=== PATIENT | female | born 1940 | race Caucasian/White ===

== ENCOUNTER → 2016-11-02 | Outpatient (CLI) | payer OTHER ==
[~2016-11-02] MED LIST: ALLDSR60 PO; B-COTAB18 PO; CARB25TA12 PO; CARB50TA3 PO; CHOL100010 PO; CLON0.5T3 PO; CRS10 PO; FSM70 PO; KRIL1CAP7 PO; META1TAB22 PO; OMEP40CA PO; PROBCAP PO; ROPI0.25 PO; TYL325X PO
--- NOTE | 2016-11-02 09:20 | DIAGNOSTIC IMAGING REPORT ---
GI SERIES W/AIR ROUTINE CLINICAL HISTORY: R68.81 Early [id number] [id number] COMPARISON STUDY: 09/13/2014 FLUOROSCOPY TIME: 2.5 minutes. FINDINGS: Patient initiates swallowing function well. Mild esophageal irritability. Fixed lateral hernia. Mild gastroesophageal reflux. Size configuration stomach are normal. Duodenal bulb fills well and is negative for ulceration. Duodenal sweep is unremarkable IMPRESSION: Hiatal hernia. Gastroesophageal reflux. Otherwise negative study. Electronically signed by: Gurpreet Peoples M.D. 11/02/2016 9:18 AM Dictated Date/Time: 11/02/2016 9:15 AM
== END | disposition home or self-care (01) ==
LOC: C.RAD 08:41
PROVIDERS: ATTEND Internal Medicine
DX: R68.81 Early satiety (principal); R13.10 Dysphagia, unspecified; K21.9 Gastro-esophageal reflux disease without esophagitis; K44.9 Diaphragmatic hernia without obstruction or gangrene

== ENCOUNTER → 2016-11-13 | Outpatient (CLI) | payer OTHER ==
--- NOTE | 2016-11-13 15:58 | MAMMOGRAPHY REPORT ---
BILATERAL DIGITAL SCREENING MAMMOGRAM WITH CAD: 11/13/2016 CLINICAL HISTORY: Routine screening. Patient has no complaints. TECHNIQUE: Bilateral CC and MLO views were obtained. Current study was also evaluated with a Compu ter Aided Detection (CAD) system. COMPARISON: Comparison is made to exams dated: 11/10/2015 mammogram, 11/09/2014 mammogram, 09/30/2013 m ammogram, 09/29/2012 mammogram, 09/26/2011 mammogram, and 08/21/2010 mammogram - [facility] enter. BREAST COMPOSITION: There are scattered areas of fibroglandular density in both breasts. There is dense glandular tissue concentrated in the anterior subareolar aspect of each breast. FINDINGS: There are stable benign rim calcifications bilaterally. No suspicious mass, architectural distortion or cluster of microcalcifications is seen. IMPRESSION: ACR BI-RADS CATEGORY 1: NEGATIVE There is no mammographic evidence of malignancy. A 1 year screening mammogram is recommended. The p atient will receive written notification of the results. Approximately 10% of breast cancers are not detected with mammography. A negative mammographic repor t should not delay biopsy if a clinically suggestive mass is present. Elizabeth Lewis M.D. ay/:11/13/2016 13:43:50 Straight Line Edger: Zamzam Yanez, M, [facility] letter sent: Normal 1/2 BI-RADS Code: ACR BI-RADS Category 1: Negative
== END | disposition home or self-care (01) ==
LOC: C.MAMM 10:47
PROVIDERS: ATTEND Internal Medicine
DX: Z12.31 Encounter for screening mammogram for malignant neoplasm of breast (principal)

== ENCOUNTER → 2016-11-14 | Outpatient (CLI) | payer OTHER ==
--- NOTE | 2016-11-14 12:26 | DIAGNOSTIC IMAGING REPORT ---
NUCLEAR GASTRIC EMPTYING STUDY: CLINICAL HISTORY: R68.81 Early [id number] [id number] COMPARISON STUDY: None TECHNIQUE: Following the oral administration of 1.1 mCi of technetium 99m sulfur colloid in egg sandwich and 8 ounces of water, static abdominal images are performed anteriorly and posteriorly at 0 minutes, 1 hour, 2 hours, and 4 hour time intervals. Gastric emptying was calculated utilizing the geometric mean method. FINDINGS: There is approximately 61 % gastric activity remaining at the 1 hour time interval, 44 % at the 2 hour time interval (normal is less than 60%), and 2 % remaining at the 4 hour time interval (normal is less than 10%). These findings are consistent with a normal study IMPRESSION: Findings are consistent with a normal study. Electronically signed by: Josef Guzman M.D. 11/14/2016 12:25 PM Dictated Date/Time: 11/14/2016 12:24 PM
== END | disposition home or self-care (01) ==
LOC: C.NUCL 07:30
PROVIDERS: ATTEND Internal Medicine
DX: R68.81 Early satiety (principal); R13.10 Dysphagia, unspecified

== ENCOUNTER → 2016-11-27 | Outpatient (CLI) | payer OTHER ==
[2016-11-27 13:35] LABS: ALT/SGPT 13 U/L (12-78); BLOOD UREA NITROGEN 14 mg/dl (7-18); BUN/CREATININE RATIO 15.3 (10-20); CALCIUM 9.6 mg/dl (8.5-10.1); CARBON DIOXIDE 22 mmol/L (21-32); CHLORIDE 111 mmol/L (98-107); CHOLESTEROL 157 mg/dl (0-200); CREATININE 0.89 mg/dl (0.60-1.20); GLUCOSE 79 mg/dl (70-99); POTASSIUM 3.7 mmol/L (3.5-5.1); SODIUM 143 mmol/L (136-145); TRIGLYCERIDES 187 mg/dl (0-150); VERY LOW DENSITY LIPOPROT CALC 37 mg/dl
[2016-11-27 13:46] LABS: ALKALINE PHOSPHATASE 80 U/L (45-117); AST/SGOT 21 U/L (15-37); CHOLESTEROL/HDL RATIO 2.7; ESTIMATED AVERAGE GLUCOSE 128 mg/dl; HA1C FLAG Normal (Normal); HDL CHOLESTEROL 58 mg/dl; LDL CHOLESTEROL CALCULATED 62 mg/dl
--- NOTE | 2016-12-06 10:32 | CODING QUERY MEDICAL NECESSITY ---
CQSUPPORTING DIAGNOSIS NEEDED A supporting diagnosis is required for the test/procedure performed on this patient in order for us to be reimbursed by the patient's insurance. Please provide a supporting diagnosis for the following test/procedure listed below next to the test name along with your signature. *If there is no additional diagnosis for this patient that would support the following test/procedure please document that below next to the test/procedure. Test(s)/Procedure(s) that require a supporting diagnosis: DOS 11/27/16 GLYCATED HEMOGLOBIN TEST Provider Signature: Date: Thank you Quiana Duncan Health Information Management Once completed, please kindly fax back to [phone] For questions please call [phone]
--- NOTE | 2016-12-07 06:02 | CODING QUERY MEDICAL NECESSITY ---
CQSUPPORTING DIAGNOSIS NEEDED A supporting diagnosis is required for the test/procedure performed on this patient in order for us to be reimbursed by the patient's insurance. Please provide a supporting diagnosis for the following test/procedure listed below next to the test name along with your signature. *If there is no additional diagnosis for this patient that would support the following test/procedure please document that below next to the test/procedure. Test(s)/Procedure(s) that require a supporting diagnosis: DOS 11/27/16 GLYCATED HEMOGLOBIN TEST Provider Signature: Date: Thank you Quiana Duncan Health Information Management Once completed, please kindly fax back to [phone] For questions please call [phone]
== END | disposition home or self-care (01) ==
LOC: C.LAB 12:01
PROVIDERS: ATTEND Internal Medicine
DX: G25.81 Restless legs syndrome (principal); M81.0 Age-related osteoporosis without current pathological fracture; R73.09 Other abnormal glucose

== ENCOUNTER → 2017-01-09 | Outpatient (CLI) | payer OTHER ==
[~2017-01-09] MED LIST changes: +ALEN70TA2 PO; +ASCO250T4 PO; +CALC-51 PO; +CALC1CHW43 PO; +CHOL20007 PO; +CRS/10 PO; +CYAN100020 PO; +DICL1GEL12 TOP; +FEXO1TAB49 PO; +GLUC1CAP28 PO; +HYOS0.1271 PO; +MECL1TAB42 PO; +MOME6000 NAE; +OMEP40CA41 PO
== END | disposition home or self-care (01) ==
LOC: C.MAMM 13:16
PROVIDERS: ATTEND Internal Medicine
DX: M81.0 Age-related osteoporosis without current pathological fracture (principal)

== ENCOUNTER 2017-07-03 18:54 | Emergency (ER) | payer OTHER ==
[~2017-07-03] VITALS: Ht 165.1 cm; Wt 81.1 kg
[~2017-07-03 18:54] MED LIST changes: -ALEN70TA2 PO; -ASCO250T4 PO; -CALC-51 PO; -CALC1CHW43 PO; -CHOL20007 PO; -CRS/10 PO; -CYAN100020 PO; -DICL1GEL12 TOP; -FEXO1TAB49 PO; -GLUC1CAP28 PO; -HYOS0.1271 PO; -MECL1TAB42 PO; -MOME6000 NAE; -OMEP40CA41 PO
[2017-07-03 19:01] VITALS: TEMP 36.7; Ht 165.1 cm; Wt 81.1 kg
[2017-07-03] MEDS ORDERED: SODIUM CHLORIDE 0.9% 1000ML 1,000 ML IV STA (19:15)
[2017-07-03 19:28] VITALS: O2SAT 94
[2017-07-03 19:29] LABS: BASO % 0.6 %; BASO ABS # 0.03 K/uL (0-0.2); COMPLETE YES; EOS % 3.4 %; HEMATOCRIT 41.4 % (37-47); IG% 0.2 %; LYMPH % 39.2 %; LYMPH ABS # 1.86 K/uL (1.2-3.4); MEAN CELL VOLUME 92.8 fL (80-100); MEAN CORPUSCULAR HEMOGLOBIN 32.7 pg (25-34); MEAN CORPUSCULAR HGB CONC 35.3 g/dl (32-36); MEAN PLATELET VOLUME 9.7 fL (7.4-10.4); MONO % 13.5 %; NEUT % 43.1 %; PLATELET COUNT 198 K/uL (130-400); RED BLOOD COUNT 4.46 M/uL (4.2-5.4); WHITE BLOOD COUNT 4.74 K/uL (4.8-10.8)
[2017-07-03 19:39] LABS: ALT/SGPT 10 U/L (12-78); AST/SGOT 20 U/L (15-37); BLOOD UREA NITROGEN 15 mg/dl (7-18); BUN/CREATININE RATIO 16.7 (10-20); CALCIUM 9.1 mg/dl (8.5-10.1); CARBON DIOXIDE 23 mmol/L (21-32); CHLORIDE 111 mmol/L (98-107); GLUCOSE 170 mg/dl (70-99); POTASSIUM 3.6 mmol/L (3.5-5.1); SODIUM 142 mmol/L (136-145)
--- NOTE | 2017-07-03 19:46 | DIAGNOSTIC IMAGING REPORT ---
CHEST ONE VIEW PORTABLE CLINICAL HISTORY: Altered mental status. Weakness. COMPARISON STUDY: Chest radiograph October 06, 2014. FINDINGS: Surgical anchors within the right humeral head are noted. 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 No pneumothorax or pleural effusion is present. Minimal left basilar opacity is suggestive of atelectasis. Cardiomediastinal silhouette is stable. There is no evidence of pulmonary edema. IMPRESSION: No acute cardiopulmonary findings. Electronically signed by: Antonino Blackburn M.D. 07/03/2017 7:44 PM Dictated Date/Time: 07/03/2017 7:43 PM
[2017-07-03 19:47] LABS: PARTIAL THROMBOPLASTIN RATIO 0.9; PROTHROMBIN TIME (PATIENT) 10.2 SECONDS (9.0-12.0)
[2017-07-03 19:50] LABS: ALKALINE PHOSPHATASE 68 U/L (45-117)
--- NOTE | 2017-07-03 20:07 | EMERGENCY ROOM VISIT NOTE ---
History Report prepared by Jean Carlos: Ced Hernandez Under the Supervision of: Dr. Benson Retana D.O. First contact with patient: 19:09 Chief Complaint: SYNCOPE Stated Complaint: SYNCOPE History of Present Illness The patient is a 76 year old female who presents to the Emergency Room with complaints of a sudden syncopal episode occurring prior to arrival. The patient states that she was eating dinner, and she started to get a faint feeling and she felt hot. The patient states that she then sat down and passed out, and she states that she vomited afterwards as well. The patient denies any leg swelling or pain, nausea, chest pain, shortness of breath, and headache. She states that she has a history of fainting spells and vertigo. The patient states that she was not drinking any alcohol, and she took a pain pill around 1700 which is normal for her. She states that she has been drinking and eating well, and she has not been urinating more than usual recently. The patient has a history of a fused spine and fibromyalgia. Source of History: patient Onset: prior to arrival Position: other (global) Quality: other (syncope) Timing: other (sudden) Associated Symptoms: + vomiting, No headache, No chest pain, No SOB, No nausea Review of Systems See HPI for pertinent positives & negatives. A total of 10 systems reviewed and were otherwise negative. Past Medical & Surgical Medical Problems: (1) Diverticulitis (2) Lumbar radiculopathy (3) Pancreas cyst (4) Restless leg syndrome Surgical Problems: (1) History of back surgery Family History No pertinent family history Social History Smoking Status: Never Smoker Drug Use: none Marital Status: Housing Status: lives alone Occupation Status: retired Current/Historical Medications Scheduled Alendronate Sodium (Fosamax), 70 MG PO WK Ascorbic Acid (Vitamin C), 250 MG PO DAILY B-Complex Vitamins (Vitamin B Complex), 1 TAB PO DAILY Calcium Carbonate-Vitamin D (Calcium), 1 TAB PO BID Carbidopa/Levodopa (Sinemet Cr 50MG/200MG), 2 TAB PO HS Carbidopa/Levodopa (Sinemet 25MG/100MG), 1 TAB PO BID Cholecalciferol (Vitamin D3), 1 TAB PO DAILY Clonazepam (Klonopin), 1 MG PO HS Cyanocobalamin (Vitamin B12), 1,000 MCG PO DAILY Fexofenadine Hcl (Lita Allergy), 1 TAB PO DAILY Uqsbcmsvfzv-Ulsvobxhvzd-Oxk C- (Glucosamine Chondroitin M), 2 CAP PO DAILY Hyoscyamine Sulfate (Hyoscyamine Sulfate), 1 TAB PO AC Krill Oil (Krill Oil [place]-3), 1 CAP PO DAILY Mometasone Furoate (Nasal) (Mometasone Furoate), 2 SPRAYS RUPA DAILY Omeprazole (Prilosec), 40 MG PO DAILY Ropinirole (Requip), 3 TABS PO BID Rosuvastatin Calcium (Crestor), 10 MG PO HS Scheduled PRN Calcium Carbonate (Antacid) (Tums E-X 750), 1 TAB PO QPM PRN for HEART BURN Diclofenac Sodium (Topical) (Voltaren 1% Top Gel), 1 APPLN TOP for Pain Meclizine Hcl (Meclizine Hcl), 1 TAB PO TID PRN for Dizziness or Vertigo Metaxalone (Skelaxin), 800 MG PO HS PRN for Mild Pain Allergies Coded Allergies: Alcohol (Verified Allergy, Unknown, MIGRAINES, 09/20/15) Eucalyptus Tree (Verified Allergy, Unknown, CONGESTION, 09/20/15) Metoclopramide (Verified Allergy, Unknown, 09/20/15) Quinine (Verified Allergy, Unknown, BLOOD COUNT GOES DOWN, 09/20/15) Morphine (Verified Adverse Reaction, Mild, "SICK", 09/20/15) Physical Exam Vital Signs Date Time Temp Pulse Resp B/P (MAP) Pulse Ox O2 Delivery O2 Flow Rate FiO2 07/03/17 22:58 77 18 137/69 99 07/03/17 21:05 75 18 130/70 98 Room Air 07/03/17 20:04 133/74 135/76 137/86 07/03/17 19:28 94 Room Air 07/03/17 19:12 79 07/03/17 19:01 36.7 76 18 125/79 94 Room Air Physical Exam GENERAL: Patient is awake, alert, and in no acute distress. Patient is resting comfortably and showing no signs of anxiety EYES: The conjunctivae are clear. The pupils are round and reactive. EARS, NOSE, MOUTH AND THROAT: The nose is without any evidence of any deformity. Mucous membranes are moist tongue is midline NECK: The neck is nontender and supple. RESPIRATORY: Normal respiratory effort is noted there is no evidence of wheezing rhonchi or rales CARDIOVASCULAR: Regular rate and rhythm noted there no murmurs rubs or gallops normal S1 normal S2 GASTROINTESTINAL: The abdomen is soft. Bowel sounds are present in all quadrants. Abdomen is nontender MUSCULOSKELETAL/EXTREMITIES: There is no evidence of gross deformity full range of motion is noted in the hips and shoulders SKIN: Trace pedal edema bilaterally. There is no obvious evidence of any rash. There are no petechiae, pallor or cyanosis noted. NEUROLOGIC: Patient is awake alert and oriented x3 strength is symmetric patellar reflexes are 2+ bilaterally Medical Decision & Procedures ER Provider Diagnostic Interpretation: Radiology results as stated below per my review and radiologist interpretation: CHEST ONE VIEW PORTABLE CLINICAL HISTORY: Altered mental status. Weakness. COMPARISON STUDY: Chest radiograph October 06, 2014. FINDINGS: Surgical anchors within the right humeral head are noted. 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 No pneumothorax or pleural effusion is present. Minimal left basilar opacity is suggestive of atelectasis. Cardiomediastinal silhouette is stable. There is no evidence of pulmonary edema. IMPRESSION: No acute cardiopulmonary findings. Electronically signed by: Antonino Blackburn M.D. 07/03/2017 7:44 PM Dictated Date/Time: 07/03/2017 7:43 PM Laboratory Results 07/03/17 18:48 Red Blood Count 4.46, Mean Corpuscular Volume 92.8, Mean Corpuscular Hemoglobin 32.7, Mean Corpuscular Hemoglobin Concent 35.3, Mean Platelet Volume 9.7, Neutrophils (%) (Auto) 43.1, Lymphocytes (%) (Auto) 39.2, Monocytes (%) (Auto) 13.5, Eosinophils (%) (Auto) 3.4, Basophils (%) (Auto) 0.6, Neutrophils # (Auto ) 2.04, Lymphocytes # (Auto) 1.86, Monocytes # (Auto) 0.64, Eosinophils # (Auto ) 0.16, Basophils # (Auto) 0.03 07/03/17 18:48 Test 07/03/17 18:48 07/03/17 21:25 White Blood Count 4.74 K/uL (4.8-10.8) Red Blood Count 4.46 M/uL (4.2-5.4) Hemoglobin 14.6 g/dL (12.0-16.0) Hematocrit 41.4 % (37-47) Mean Corpuscular Volume 92.8 fL (80-100) Mean Corpuscular Hemoglobin 32.7 pg (25-34) Mean Corpuscular Hemoglobin Concent 35.3 g/dl (32-36) Platelet Count 198 K/uL (130-400) Mean Platelet Volume 9.7 fL (7.4-10.4) Neutrophils (%) (Auto) 43.1 % Lymphocytes (%) (Auto) 39.2 % Monocytes (%) (Auto) 13.5 % Eosinophils (%) (Auto) 3.4 % Basophils (%) (Auto) 0.6 % Neutrophils # (Auto) 2.04 K/uL (1.4-6.5) Lymphocytes # (Auto) 1.86 K/uL (1.2-3.4) Monocytes # (Auto) 0.64 K/uL (0.11-0.59) Eosinophils # (Auto) 0.16 K/uL (0-0.5) Basophils # (Auto) 0.03 K/uL (0-0.2) RDW Standard Deviation 45.8 fL (36.4-46.3) RDW Coefficient of Variation 13.5 % (11.5-14.5) Immature Granulocyte % (Auto) 0.2 % Immature Granulocyte # (Auto) 0.01 K/uL (0.00-0.02) Prothrombin Time 10.2 SECONDS (9.0-12.0) Prothromb Time International Ratio 1.0 (0.9-1.1) Activated Partial Thromboplast Time 23.1 SECONDS (21.0-31.0) Partial Thromboplastin Ratio 0.9 Anion Gap 8.0 mmol/L (3-11) Est Creatinine Clear Calc Drug Dose 55.9 ml/min Estimated GFR () 72.0 Estimated GFR (Non- 62.1 BUN/Creatinine Ratio 16.7 (10-20) Calcium Level 9.1 mg/dl (8.5-10.1) Magnesium Level 2.0 mg/dl (1.8-2.4) Total Bilirubin 0.5 mg/dl (0.2-1) Direct Bilirubin 0.1 mg/dl (0-0.2) Aspartate Amino Transf (AST/SGOT) 20 U/L (15-37) Alanine Aminotransferase (ALT/SGPT) 10 U/L (12-78) Alkaline Phosphatase 68 U/L (45-117) Troponin I < 0.015 ng/ml (0-0.045) Total Protein 7.3 gm/dl (6.4-8.2) Albumin 3.6 gm/dl (3.4-5.0) Thyroid Stimulating Hormone (TSH) 2.960 uIu/ml (0.300-4.500) Urine Color DK YELLOW Urine Appearance CLEAR (CLEAR) Urine pH 5.5 (4.5-7.5) Urine Specific Drake 1.020 (1.000-1.030) Urine Protein NEG (NEG) Urine Glucose (UA) NEG (NEG) Urine Ketones NEG (NEG) Urine Occult Blood NEG (NEG) Urine Nitrite NEG (NEG) Urine Bilirubin NEG (NEG) Urine Urobilinogen NEG (NEG) Urine Leukocyte Esterase TRACE (NEG) Urine WBC (Auto) 1-5 /hpf (0-5) Urine RBC (Auto) 0-4 /hpf (0-4) Urine Hyaline Casts (Auto) 1-5 /lpf (0-5) Urine Epithelial Cells (Auto) 20-30 /lpf (0-5) Urine Bacteria (Auto) NEG (NEG) Laboratory results per my review. Medications Administered Medications (Trade) Dose Ordered Sig/Christel Route Start Time Stop Time Status Last Admin Dose Admin Sodium Chloride 1,000 ml @ 999 mls/hr Q1H1M STAT IV 07/03/17 19:15 07/03/17 20:15 DC 07/03/17 19:53 999 MLS/HR ECG Indication: syncope Rate (beats per minute): 76 Rhythm: normal sinus Findings: no ectopy, other (No acute ST segment abnormality. LVH by voltage criteria.) Comparison ECG Date: no prior available ED Course 1908: The patient was evaluated in room B11. A complete history and physical examination were performed. 1914: NSS 1,000 ml @ 999 mls/hr IV 2223: Upon reevaluation, the patient is doing well. I discussed the results and treatment plan with her. She verbalized agreement of the treatment plan. She was discharged home. Medical Decision Differential diagnosis: Etiologies such as vasovagal event, infection, hypoglycemia, electrolyte abnormalities, cardiac sources, intracerebral event, toxicologic, neurologic, as well as others were entertained. Nursing notes reviewed. The patient is a 76-year-old female who presented to the emergency department after having a syncopal episode. The patient had no complaints upon arrival to the emergency Department although she did get Zofran for an episode of nausea vomiting that occurred prior to arrival. The patient had no chest pain or shortness of breath. She was treated with IV fluids in the emergency department. I discussed the patient's laboratory and radiographic studies with her. She was encouraged to rest and avoid any strenuous activity. She already has an appointment scheduled with her primary care physician in the morning. She was encouraged to keep this appointment. She was also encouraged to rest and avoid any strenuous activity. She was also encouraged return to emergency department immediately if symptoms change worsen or the need arises. Head Trauma GCS Score: 15 Medication Reconcilliation Current Medication List: was personally reviewed by me Blood Pressure Screening Patient's blood pressure: Normal blood pressure Impression Primary Impression: Syncope Scribe Attestation The scribe's documentation has been prepared under my direction and personally reviewed by me in its entirety. I confirm that the note above accurately reflects all work, treatment, procedures, and medical decision making performed by me. Departure Information Dispostion Home / Self-Care Referrals Tu Cannon M.D. (PCP) Forms HOME CARE DOCUMENTATION FORM, IMPORTANT VISIT INFORMATION Patient Instructions My [facility], Syncope Additional Instructions Follow-up with your family tomorrow as scheduled. Drink plenty clear liquids. Rest and avoid any strenuous activity. Discussed the possibility with your family doctor that you may require further studies such as an echocardiogram or a Holter monitor to further evaluate the cause of your passing out episode. Problem Qualifiers Primary Impression: Syncope Syncope type: unspecified Qualified Codes: R55 - Syncope and collapse
[2017-07-03] MEDS ORDERED: ALEN70TA2 PO (20:48)
[2017-07-03] MEDS ORDERED: GLUC1CAP28 PO (20:48)
[2017-07-03] MEDS ORDERED: ASCO250T4 PO (20:48)
[2017-07-03] MEDS ORDERED: CALC1CHW43 PO (20:48)
[2017-07-03] MEDS ORDERED: CYAN100020 PO (20:48)
[2017-07-03] MEDS ORDERED: HYOS0.1271 PO (20:48)
[2017-07-03] MEDS ORDERED: MECL1TAB42 PO (20:48)
[2017-07-03] MEDS ORDERED: CALC-51 PO (20:48)
[2017-07-03] MEDS ORDERED: OMEP40CA41 PO (20:48)
[2017-07-03] MEDS ORDERED: DICL1GEL12 TOP (20:48)
[2017-07-03] MEDS ORDERED: CRS/10 PO (20:48)
[2017-07-03] MEDS ORDERED: MOME6000 NAE (20:48)
[2017-07-03] MEDS ORDERED: FEXO1TAB49 PO (20:48)
[2017-07-03] MEDS ORDERED: CHOL20007 PO (20:48)
[2017-07-03 21:49] LABS: MANUAL MICROSCOPIC REQUIRED? NO; REVIEW REQ? NO; URINE APPEARANCE CLEAR (CLEAR); URINE BILIRUBIN NEG (NEG); URINE COLOR DK YELLOW; URINE EPITHELIAL CELL AUTO 20-30 /lpf (0-5); URINE NITRITE NEG (NEG); URINE PH 5.5 (4.5-7.5); UROBILINOGEN NEG (NEG)
[2017-07-03 22:58] VITALS: BP 137/69; PULSE 77; O2SAT 99
== END 2017-07-03 22:59 | disposition home or self-care (01) ==
LOC: EDBD 18:54 → C.EDB 18:55
DX: R55 Syncope and collapse (principal); R11.2 Nausea with vomiting, unspecified; M79.7 Fibromyalgia; G25.81 Restless legs syndrome; Z98.1 Arthrodesis status

== ENCOUNTER 2017-09-14 17:06 | Inpatient (IN) | payer OTHER ==
[~2017-09-14] VITALS: Ht 165.1 cm; Wt 67.3 kg
[~2017-09-14 17:06] MED LIST changes: +ALEN70TA2 PO; -ALLDSR60 PO; +ASCO250T4 PO; +CALC-51 PO; +CALC1CHW43 PO; -CHOL100010 PO; +CHOL20007 PO; +CRS/10 PO; -CRS10 PO; +CYAN100020 PO; +DICL1GEL12 TOP; +FEXO1TAB49 PO; -FSM70 PO; +GLUC1CAP28 PO; +HYOS0.1271 PO; +MECL1TAB42 PO; +MOME6000 NAE; -OMEP40CA PO; +OMEP40CA41 PO; -PROBCAP PO; -TYL325X PO
[2017-09-14] MEDS ORDERED: KETOROLAC TROMETHAMINE 30 MG/ML VIAL IV STA (17:15)
[2017-09-14] MEDS ORDERED: MoRPHine SULFATE 2 MG/ML CARP IV STA ×2 (17:15→17:50)
[2017-09-14] MEDS ORDERED: ONDANSETRON INJ 2 MG/ML 2 ML VIAL IV STA (17:15)
--- NOTE | 2017-09-14 17:18 | EMERGENCY ROOM VISIT NOTE ---
History Report prepared by Jean Carlos: Ced Hernandez Under the Supervision of: Dr. Ritchie Hooper M.D. First contact with patient: 17:07 Stated Complaint: FALL/ SHOULDER PAIN History of Present Illness The patient is a 77 year old female who presents to the Emergency Room with complaints of a sudden fall occurring 10 minutes prior to arrival. The patient states that she was walking her dog when it ran and pulled her, and she fell on her left shoulder. She states that she is having left shoulder pain and some neck pain. She denies any loss of consciousness, chest pain, shortness of breath , rib pain, abdominal pain, and any head injury. The patient additionally states that she has had multiple surgeries on that shoulder including a rotator cuff repair. Source of History: patient Onset: 10 minutes prior to arrival Position: other (global) Quality: other Timing: other (sudden) Associated Symptoms: + neck pain, No chest pain, No SOB Note: Associated symptoms: Left shoulder pain Review of Systems See HPI for pertinent positives & negatives. A total of 10 systems reviewed and were otherwise negative. Past Medical & Surgical Medical Problems: (1) Clavicular fracture (2) Diverticulitis (3) Lumbar radiculopathy (4) Pancreas cyst (5) Restless leg syndrome Surgical Problems: (1) History of back surgery Old medical records were reviewed. Nurse's notes were reviewed and I agree with. Family History No pertinent family history Social History Smoking Status: Never Smoker Drug Use: none Marital Status: Housing Status: lives alone Occupation Status: retired Current/Historical Medications Scheduled Alendronate Sodium (Fosamax), 70 MG PO WK Carbidopa/Levodopa (Sinemet Cr 50MG/200MG), 2 TAB PO HS Carbidopa/Levodopa (Sinemet 25MG/100MG), 1 TAB PO QID Gabapentin (Neurontin), 200 MG PO HS Krill Oil (Krill Oil [place]-3), 1 CAP PO DAILY Nutritional Supplements (Colon Formula), 1 CAP PO DAILY Omeprazole (Prilosec), 40 MG PO DAILY Ropinirole (Requip), 0.5 MG PO TID Rosuvastatin Calcium (Crestor), 10 MG PO HS Thiamine Hcl (Vitamin B-1), 1 TAB PO DAILY Scheduled PRN Fexofenadine Hcl (Lita), 60-120 MG PO BID PRN for ALLERGIES Metaxalone (Skelaxin), 800 MG PO DAILY PRN for Pain Allergies Coded Allergies: Alcohol (Verified Allergy, Unknown, MIGRAINES, 09/14/17) Eucalyptus Tree (Verified Allergy, Unknown, CONGESTION, 09/14/17) Metoclopramide (Verified Allergy, Unknown, 09/14/17) Quinine (Verified Allergy, Unknown, BLOOD COUNT GOES DOWN, 09/14/17) Morphine (Verified Adverse Reaction, Mild, "SICK", 09/14/17) Physical Exam Vital Signs Date Time Temp Pulse Resp B/P (MAP) Pulse Ox O2 Delivery O2 Flow Rate FiO2 09/14/17 19:18 93 Nasal Cannula 2.0 09/14/17 19:17 87 Room Air 09/14/17 19:06 91 11 94 09/14/17 19:04 163/92 09/14/17 18:36 87 16 09/14/17 18:21 70 16 09/14/17 18:06 80 22 09/14/17 17:51 82 31 09/14/17 17:43 70 09/14/17 17:36 72 15 97 09/14/17 17:16 36.6 76 20 169/91 95 Room Air 09/14/17 17:12 169/91 Physical Exam General: Uncomfortable appearing older female complaining of left shoulder pain towards her scapula. HEENT: Normal cephalic atraumatic. Pupils are equal round and reactive to light. Extraocular movements are intact. Oropharynx is pink with moist mucous membranes. No swelling of the mouth lips or tongue. Neck: Supple with a midline trachea. No meningeal signs or stiffness, no JVD or bruits. No Stridor. Chest: Clear to auscultation bilaterally. No wheezes or rhonchi. No increased work of breathing. Heart: regular rate and rhythm. Abdomen: Soft nontender, nondistended without rebound guarding or rigidity. Extremities: There is significant pain with any movement of the left shoulder. Scar from previous surgeries. No cyanosis clubbing or edema. No calf tenderness or assymetry Spine/Back. Non tender to palpation. No CVA tenderness Skin: Good turgor without rashes. Neurologic exam: Cranial nerves two through 12 are intact. Motor and sensation are intact and symmetrical throughout. Medical Decision & Procedures ER Provider Diagnostic Interpretation: Radiology results as stated below per my review and radiologist interpretation: LEFT SHOULDER 3 VIEWS HISTORY: Fall. Left shoulder pain. eval for fx COMPARISON: Chest 07/03/2017. FINDINGS: The left clavicle is intact. Displaced fracture at the body of the scapula which demonstrates up to 1.7 cm of posterior displacement. No dislocation within the left shoulder. The fracture extends through the glenoid. The humeral head appears intact. Moderate osteoarthritis within the glenohumeral joint. No radiopaque foreign bodies. IMPRESSION: Displaced scapular fracture which involves the glenoid. No dislocation. Electronically signed by: Suleman Gonzalez M.D. 09/14/2017 6:10 PM Dictated Date/Time: 09/14/2017 6:07 PM CHEST ONE VIEW PORTABLE HISTORY: Left-sided CHEST PAIN COMPARISON: Chest 07/03/2017. FINDINGS: No pneumothorax. No pleural effusions. The heart remains mildly enlarged. Posterior fusion hardware within the lumbar spine. Metallic anchors within the right humeral head. Left scapular fracture is better appreciated on the same day left shoulder series. IMPRESSION: 1. Mild cardiomegaly. 2. Left scapular fracture is again noted. Electronically signed by: Suleman Gonzalez M.D. 09/14/2017 6:11 PM Dictated Date/Time: 09/14/2017 6:[address] WITH CONTRAST CT DOSE: HISTORY: Fall. Left shoulder fracture. eval for trauma TECHNIQUE: Multiaxial CT images of the chest were performed following the intravenous administration of contrast. A dose lowering technique was utilized adhering to the principles of ALARA. COMPARISON: Chest CT 12/27/2009. FINDINGS: There is oblique fracture within the medial left clavicle which demonstrates mild anterior displacement. Redemonstration of the comminuted fracture through the body of the scapula which extends into the glenoid. This demonstrates up to 2 cm of posterior displacement at the glenoid. There is a left shoulder effusion. Mild anterior subluxation of the left humeral head. No pneumothorax. Groundglass densities within the base of the left lower lobe. The right lung is essentially clear. The central airways are patent. Moderate hiatus hernia. No mediastinal or hilar lymphadenopathy. Normal caliber thoracic aorta with no evidence for dissection. The central pulmonary arteries are patent. No mediastinal hematoma. No pneumothorax. No pleural effusions. IMPRESSION: 1. Comminuted fracture within the left scapula as described above. This extends into the glenoid which demonstrates up to 2 cm of posterior displacement of the glenoid fragment. There is mild anterior subluxation of the left humeral head in relation to the glenoid. 2. Mildly displaced left medial clavicle fracture. 3. Groundglass densities within the left lower lobe which favor mild dependent change. Electronically signed by: Suleman Gonzalez M.D. 09/14/2017 7:32 PM Dictated Date/Time: 09/14/2017 7:[address] DOSE: HISTORY: Fall. Neck pain. eval for trauma TECHNIQUE: Multiaxial CT images of the cervical spine were performed and reformatted in the sagittal and coronal plane without the use of contrast. A dose lowering technique was utilized adhering to the principles of ALARA. COMPARISON: None. FINDINGS: No fractures within the cervical spine. 2 mm of anterolisthesis of C4 and C5 and C5 on C6. This is likely due to long-standing degenerative change. Mild disc space narrowing at C5-C6 and severe disc space narrowing at C6-C7. The prevertebral soft tissues and the C1-C2 interval are intact. No pneumothorax. IMPRESSION: No fractures within the cervical spine. Electronically signed by: Suleman Gonzalez M.D. 09/14/2017 7:18 PM Dictated Date/Time: 09/14/2017 7:12 PM A[address]OMEN AND PELVIS CT WITH IV CONTRAST CT DOSE: 1839.16 mGy.cm HISTORY: Fall. Left-sided abdominal pain. eval for trAUMA TECHNIQUE: Multiaxial CT images of the abdomen and pelvis were performed following the use of intravenous contrast. A dose lowering technique was utilized adhering to the principles of ALARA. COMPARISON STUDY: Abdomen and pelvis CT 06/20/2014. FINDINGS: No pneumoperitoneum. No pneumatosis. No acute fractures within the visualized osseous structures of the abdomen and pelvis. Posterior decompression fusion seen within the lower thoracic and lumbar spine. Small fat-containing midline ventral hernia and a small fat-containing umbilical hernia. Mild elevation of the left hemidiaphragm, unchanged. Moderate hiatus hernia. The bladder, uterus, bilateral adnexa are unremarkable. Colonic diverticulosis. Question wall thickening of the sigmoid colon is likely due to muscular hypertrophy. No bowel wall thickening or obstruction. Postoperative changes consistent with prior right hemicolectomy. No retroperitoneal hematoma. No retroperitoneal lymphadenopathy. A left circumaortic renal vein. The liver, spleen, and adrenal glands are unremarkable. No hydronephrosis. Stable common hepatic bile duct dilatation. This is likely due to the patient's postcholecystectomy state. Stable 9 mm cystic lesion at the pancreatic tail. A few subcentimeter hypodense renal lesions are too small to characterize. No hydronephrosis. IMPRESSION: 1. No acute process within the abdomen or pelvis. 2. Additional chronic findings as described above. These are not significant changed. Electronically signed by: Suleman Gonzalez M.D. 09/14/2017 7:41 PM Dictated Date/Time: 09/14/2017 7:32 PM Laboratory Results 09/14/17 17:20 Red Blood Count 4.27, Mean Corpuscular Volume 94.1, Mean Corpuscular Hemoglobin 32.6, Mean Corpuscular Hemoglobin Concent 34.6, Mean Platelet Volume 9.9, Neutrophils (%) (Auto) 55.0, Lymphocytes (%) (Auto) 32.2, Monocytes (%) (Auto) 9.7, Eosinophils (%) (Auto) 2.5, Basophils (%) (Auto) 0.3, Neutrophils # (Auto) 3.50, Lymphocytes # (Auto) 2.05, Monocytes # (Auto) 0.62, Eosinophils # (Auto) 0.16, Basophils # (Auto) 0.02 09/14/17 17:20 Test 09/14/17 17:20 White Blood Count 6.37 K/uL (4.8-10.8) Red Blood Count 4.27 M/uL (4.2-5.4) Hemoglobin 13.9 g/dL (12.0-16.0) Hematocrit 40.2 % (37-47) Mean Corpuscular Volume 94.1 fL (80-100) Mean Corpuscular Hemoglobin 32.6 pg (25-34) Mean Corpuscular Hemoglobin Concent 34.6 g/dl (32-36) Platelet Count 197 K/uL (130-400) Mean Platelet Volume 9.9 fL (7.4-10.4) Neutrophils (%) (Auto) 55.0 % Lymphocytes (%) (Auto) 32.2 % Monocytes (%) (Auto) 9.7 % Eosinophils (%) (Auto) 2.5 % Basophils (%) (Auto) 0.3 % Neutrophils # (Auto) 3.50 K/uL (1.4-6.5) Lymphocytes # (Auto) 2.05 K/uL (1.2-3.4) Monocytes # (Auto) 0.62 K/uL (0.11-0.59) Eosinophils # (Auto) 0.16 K/uL (0-0.5) Basophils # (Auto) 0.02 K/uL (0-0.2) RDW Standard Deviation 47.3 fL (36.4-46.3) RDW Coefficient of Variation 13.8 % (11.5-14.5) Immature Granulocyte % (Auto) 0.3 % Immature Granulocyte # (Auto) 0.02 K/uL (0.00-0.02) Prothrombin Time 9.9 SECONDS (9.0-12.0) Prothromb Time International Ratio 0.9 (0.9-1.1) Activated Partial Thromboplast Time 23.3 SECONDS (21.0-31.0) Partial Thromboplastin Ratio 0.9 Anion Gap 7.0 mmol/L (3-11) Est Creatinine Clear Calc Drug Dose 41.2 ml/min Estimated GFR () 60.7 Estimated GFR (Non- 52.4 BUN/Creatinine Ratio 14.4 (10-20) Calcium Level 8.8 mg/dl (8.5-10.1) Total Bilirubin 0.5 mg/dl (0.2-1) Direct Bilirubin 0.1 mg/dl (0-0.2) Aspartate Amino Transf (AST/SGOT) 25 U/L (15-37) Alanine Aminotransferase (ALT/SGPT) 16 U/L (12-78) Alkaline Phosphatase 63 U/L (45-117) Total Protein 7.2 gm/dl (6.4-8.2) Albumin 3.6 gm/dl (3.4-5.0) Lipase 130 U/L (73-393) Laboratory studies as stated above per my review. Medications Administered Medications (Trade) Dose Ordered Sig/Christel Route Start Time Stop Time Status Last Admin Dose Admin Ondansetron HCl (Zofran Inj) 4 mg NOW STAT IV 09/14/17 17:15 09/14/17 17:17 DC 09/14/17 17:26 4 MG Ketorolac Tromethamine (Toradol Inj) 30 mg NOW STAT IV 09/14/17 17:15 09/14/17 17:17 DC 09/14/17 17:26 30 MG Morphine Sulfate (MoRPHine SULFATE INJ) 2 mg NOW STAT IV 09/14/17 17:15 09/14/17 17:17 DC 09/14/17 17:27 2 MG Morphine Sulfate (MoRPHine SULFATE INJ) 2 mg NOW STAT IV 09/14/17 17:50 09/14/17 17:51 DC 09/14/17 17:55 2 MG Lorazepam (Ativan Inj) 0.5 mg NOW STAT IV 09/14/17 18:07 09/14/17 18:08 DC 09/14/17 18:25 0.5 MG ED Course 1707: Past medical records reviewed. The patient was evaluated in room C9, and a complete history and physical examination were performed. 1715: Morphine Sulfate 2mg IV, Toradol 30mg IV, Zofran 4mg IV 1725: I reevaluated the patient, and she notes that she had 4 surgeries on that shoulder. She just got her medications, and she is waiting for x-rays. 174: I reassessed the patient, and she is still having some pain. 1750: Morphine Sulfate 2mg IV 1807: Ativan 0.5mg IV 184: Upon reevaluation, the patient is going over to CT scan. 190: I reevaluated the patient, and she is doing okay. She just got back from CT 192: I reevaluated the patient, and she seems very comfortable. 1938: I discussed the patient's case with Dr. Ward [facility] , and he states that the patient does not need anything emergent done. He states that these cases often don't need surgery, and they can evaluate the patient in the morning. 1944: I reassessed the patient, and I discussed the treatment plan with her, and she was agreeable. 1954: Discussed the patient's case with Dr. Hopkins. The patient will be evaluated for further management. Medical Decision Differentials include, but are not limited to; fracture, orthopedic injury, dislocation, and contusion. This patient comes in as described above she suffered a mechanical fall has diffuse shoulder pain. It towards her scapula. She's had 4 surgeries on that shoulder. She has good distal pulses and is able wiggle her fingers. She denies any other injury. She denies chest pain , shortness breath, or syncope. She has no definite neurologic deficits although she is s difficult to examine due to pain. IV access was established. Morphine is listed as an allergy however she says that she is done okay with that this was something that happened many many years ago she got nauseated and she was given 2 mg morphine IV as well as 4 mg Zofran IV and Toradol 30 mg IV. X-rays were obtained. This shows a scapular fracture which is displaced there is no other injury seen. She was reassessed frequently. She did receive Ativan 0.5 mg for pain and spasm she has a restless leg and didn't take her evening Skelaxin as well. She has no acute electrode or metabolic abnormalities. She has a normal hemoglobin. I did do a CAT scan of her chest as well as neck and abdomen to rule out trauma given her scapula fracture. He does have a scapular fracture as well as a nondisplaced clavicle. I did discuss case with the radiologist and she has nothing to suggest pulmonary contusion or other traumatic injuries. She seems much more comfortable. She will be admitted for pain management. I did discuss case with the on-call orthopedist and he said they can consult on her blood she does not need anything differently tonight from an orthopedic standpoint and these are often manage nonoperatively. I did discuss case with Dr. Parry and he will make her for pain management and further treatment and evaluation. Medication Reconcilliation Current Medication List: was personally reviewed by me Blood Pressure Screening Patient's blood pressure: Elevated blood pressure Monitored by the hospitalist Consults Time Called: 1937 Consulting Physician: Dr. Brock [facility] Returned Call: 1938 I discussed the patient's case with Dr. Ward [facility], and he states that the patient does not need anything emergent done. He states that these cases often don't need surgery, and they can evaluate the patient in the morning. Additional Consults: Time Called: 1943 Consulted Physician: Dr. Hopkins Returned Call: 1954 Additional Comments: Discussed the patient's case with Dr. Hopkins. The patient will be evaluated for further management. Impression Primary Impression: Left scapula fracture Additional Impressions: Fracture of left clavicle Fall Scribe Attestation The scribe's documentation has been prepared under my direction and personally reviewed by me in its entirety. I confirm that the note above accurately reflects all work, treatment, procedures, and medical decision making performed by me. Departure Information Dispostion Being Evaluated By Hospitalist Referrals Tu Cannon M.D. (PCP) Problem Qualifiers
[2017-09-14] MEDS ORDERED: GABA-112 PO (17:52)
[2017-09-14] MEDS ORDERED: NUTRCAP11 PO (17:52)
[2017-09-14] MEDS ORDERED: THIA50TA3 PO (17:52)
[2017-09-14] MEDS ORDERED: FEXO1TAB45 PO (17:52)
[2017-09-14] MEDS ORDERED: LORAZEPAM 2 MG/ML 1 ML VIAL IV STA (18:07)
--- NOTE | 2017-09-14 18:11 | DIAGNOSTIC IMAGING REPORT ---
LEFT SHOULDER 3 VIEWS HISTORY: Fall. Left shoulder pain. eval for fx COMPARISON: Chest 07/03/2017. FINDINGS: The left clavicle is intact. Displaced fracture at the body of the scapula which demonstrates up to 1.7 cm of posterior displacement. No dislocation within the left shoulder. The fracture extends through the glenoid. The humeral head appears intact. Moderate osteoarthritis within the glenohumeral joint. No radiopaque foreign bodies. IMPRESSION: Displaced scapular fracture which involves the glenoid. No dislocation. Electronically signed by: Suleman Gonzalez M.D. 09/14/2017 6:10 PM Dictated Date/Time: 09/14/2017 6:07 PM
--- NOTE | 2017-09-14 18:12 | DIAGNOSTIC IMAGING REPORT ---
CHEST ONE VIEW PORTABLE HISTORY: Left-sided CHEST PAIN COMPARISON: Chest 07/03/2017. FINDINGS: No pneumothorax. No pleural effusions. The heart remains mildly enlarged. Posterior fusion hardware within the lumbar spine. Metallic anchors within the right humeral head. Left scapular fracture is better appreciated on the same day left shoulder series. IMPRESSION: 1. Mild cardiomegaly. 2. Left scapular fracture is again noted. Electronically signed by: Suleman Gonzalez M.D. 09/14/2017 6:11 PM Dictated Date/Time: 09/14/2017 6:10 PM
[2017-09-14 18:19] LABS: BASO % 0.3 %; BASO ABS # 0.02 K/uL (0-0.2); COMPLETE YES; EOS % 2.5 %; HEMATOCRIT 40.2 % (37-47); IG% 0.3 %; LYMPH % 32.2 %; LYMPH ABS # 2.05 K/uL (1.2-3.4); MEAN CELL VOLUME 94.1 fL (80-100); MEAN CORPUSCULAR HEMOGLOBIN 32.6 pg (25-34); MEAN CORPUSCULAR HGB CONC 34.6 g/dl (32-36); MEAN PLATELET VOLUME 9.9 fL (7.4-10.4); MONO % 9.7 %; PLATELET COUNT 197 K/uL (130-400); RED BLOOD COUNT 4.27 M/uL (4.2-5.4); WHITE BLOOD COUNT 6.37 K/uL (4.8-10.8)
[2017-09-14 18:28] LABS: BUN/CREATININE RATIO 14.4 (10-20); CALCIUM 8.8 mg/dl (8.5-10.1); CREATININE 1.03 mg/dl (0.60-1.20); POTASSIUM 3.6 mmol/L (3.5-5.1)
[2017-09-14 18:30] LABS: INR 0.9 (0.9-1.1); PARTIAL THROMBOPLASTIN RATIO 0.9; PROTHROMBIN TIME (PATIENT) 9.9 SECONDS (9.0-12.0)
[2017-09-14] MEDS ORDERED: OPTIRAY 320 IV PRN (19:15)
--- NOTE | 2017-09-14 19:20 | DIAGNOSTIC IMAGING REPORT ---
CERVICAL SPINE CT CT DOSE: HISTORY: Fall. Neck pain. eval for trauma TECHNIQUE: Multiaxial CT images of the cervical spine were performed and reformatted in the sagittal and coronal plane without the use of contrast. A dose lowering technique was utilized adhering to the principles of ALARA. COMPARISON: None. FINDINGS: No fractures within the cervical spine. 2 mm of anterolisthesis of C4 and C5 and C5 on C6. This is likely due to long-standing degenerative change. Mild disc space narrowing at C5-C6 and severe disc space narrowing at C6-C7. The prevertebral soft tissues and the C1-C2 interval are intact. No pneumothorax. IMPRESSION: No fractures within the cervical spine. Electronically signed by: Suleman Gonzalez M.D. 09/14/2017 7:18 PM Dictated Date/Time: 09/14/2017 7:12 PM
--- NOTE | 2017-09-14 19:33 | DIAGNOSTIC IMAGING REPORT ---
CHEST CT WITH CONTRAST CT DOSE: HISTORY: Fall. Left shoulder fracture. eval for trauma TECHNIQUE: Multiaxial CT images of the chest were performed following the intravenous administration of contrast. A dose lowering technique was utilized adhering to the principles of ALARA. COMPARISON: Chest CT 12/27/2009. FINDINGS: There is oblique fracture within the medial left clavicle which demonstrates mild anterior displacement. Redemonstration of the comminuted fracture through the body of the scapula which extends into the glenoid. This demonstrates up to 2 cm of posterior displacement at the glenoid. There is a left shoulder effusion. Mild anterior subluxation of the left humeral head. No pneumothorax. Groundglass densities within the base of the left lower lobe. The right lung is essentially clear. The central airways are patent. Moderate hiatus hernia. No mediastinal or hilar lymphadenopathy. Normal caliber thoracic aorta with no evidence for dissection. The central pulmonary arteries are patent. No mediastinal hematoma. No pneumothorax. No pleural effusions. IMPRESSION: 1. Comminuted fracture within the left scapula as described above. This extends into the glenoid which demonstrates up to 2 cm of posterior displacement of the glenoid fragment. There is mild anterior subluxation of the left humeral head in relation to the glenoid. 2. Mildly displaced left medial clavicle fracture. 3. Groundglass densities within the left lower lobe which favor mild dependent change. Electronically signed by: Suleman Gonzalez M.D. 09/14/2017 7:32 PM Dictated Date/Time: 09/14/2017 7:19 PM
--- NOTE | 2017-09-14 19:42 | DIAGNOSTIC IMAGING REPORT ---
ABDOMEN AND PELVIS CT WITH IV CONTRAST CT DOSE: 1839.16 mGy.cm HISTORY: Fall. Left-sided abdominal pain. eval for trAUMA TECHNIQUE: Multiaxial CT images of the abdomen and pelvis were performed following the use of intravenous contrast. A dose lowering technique was utilized adhering to the principles of ALARA. COMPARISON STUDY: Abdomen and pelvis CT 06/20/2014. FINDINGS: No pneumoperitoneum. No pneumatosis. No acute fractures within the visualized osseous structures of the abdomen and pelvis. Posterior decompression fusion seen within the lower thoracic and lumbar spine. Small fat-containing midline ventral hernia and a small fat-containing umbilical hernia. Mild elevation of the left hemidiaphragm, unchanged. Moderate hiatus hernia. The bladder, uterus, bilateral adnexa are unremarkable. Colonic diverticulosis. Question wall thickening of the sigmoid colon is likely due to muscular hypertrophy. No bowel wall thickening or obstruction. Postoperative changes consistent with prior right hemicolectomy. No retroperitoneal hematoma. No retroperitoneal lymphadenopathy. A left circumaortic renal vein. The liver, spleen, and adrenal glands are unremarkable. No hydronephrosis. Stable common hepatic bile duct dilatation. This is likely due to the patient's postcholecystectomy state. Stable 9 mm cystic lesion at the pancreatic tail. A few subcentimeter hypodense renal lesions are too small to characterize. No hydronephrosis. IMPRESSION: 1. No acute process within the abdomen or pelvis. 2. Additional chronic findings as described above. These are not significant changed. Electronically signed by: Suleman Gonzalez M.D. 09/14/2017 7:41 PM Dictated Date/Time: 09/14/2017 7:32 PM
--- NOTE | 2017-09-14 20:09 | History and Physical ---
History & Physical Date & Time of Service: Sep 14, 2017 at 20:00 Chief Complaint: Fall/ Shoulder Pain Primary Care Physician: Tu Cannon M.D. History of Present Illness Source: patient 77 y/o F Hx RLS, osteoarthritis, multiple back and rotator cuff surgeries. The pt presents following a fall onto he L shoulder. She had significant pain following her fall and felt she had suffered a fracture. A displaced clavicular fracture was confirmed on arrival to the ER. She did not have any symptoms preceding her fall. She was walking her dog in fact when it became distracted by another dog at the opposite end of her yard and pulled her down onto her side as a result. She normally requires a walker for ambulation but is able to maintain independence and walk her dog regularly. Past Medical/Surgical History 1) History of diverticulitis 2) Perforated colon as a result of colonoscopy 3) Renal calculi 4) Osteoarthritis 5) Chronic rotator cuff syndrome bilaterally - multiple surgeries 6) RLS - treated with Sinemet, Pramipexole and Skelaxin HS 7) Hyperlipidemia Surgical: 1) Multiple back surgeries 2) Multiple surgeries of the bilateral rotator cuffs 3) Laparoscopic ileocecal resection due to cecal perforation from colonoscopy. Family History No pertinent family history Social History She does not smoke or drink and is able to maintain independence - she ambulates with a walker Smoking Status: Never Smoker Drug Use: none Marital Status: Occupational Status: retired Immunizations History of Influenza Vaccine: Yes Influenza Vaccine Date: Jun 13, 2011 History of Tetanus Vaccine?: Yes History of Pneumococcal: Yes History of Hepatitis B Vaccine: No Multi-Drug Resistant Organisms History of MDRO: No Allergies Coded Allergies: Alcohol (Verified Allergy, Unknown, MIGRAINES, 09/14/17) Eucalyptus Tree (Verified Allergy, Unknown, CONGESTION, 09/14/17) Metoclopramide (Verified Allergy, Unknown, 09/14/17) Quinine (Verified Allergy, Unknown, BLOOD COUNT GOES DOWN, 09/14/17) Morphine (Verified Adverse Reaction, Mild, "SICK", 09/14/17) Home Medications Scheduled Alendronate Sodium (Fosamax), 70 MG PO WK Carbidopa/Levodopa (Sinemet Cr 50MG/200MG), 2 TAB PO HS Carbidopa/Levodopa (Sinemet 25MG/100MG), 1 TAB PO QID Gabapentin (Neurontin), 200 MG PO HS Krill Oil (Krill Oil [place]-3), 1 CAP PO DAILY Nutritional Supplements (Colon Formula), 1 CAP PO DAILY Omeprazole (Prilosec), 40 MG PO DAILY Ropinirole (Requip), 0.5 MG PO TID Rosuvastatin Calcium (Crestor), 10 MG PO HS Thiamine Hcl (Vitamin B-1), 1 TAB PO DAILY Scheduled PRN Fexofenadine Hcl (Lita), 60-120 MG PO BID PRN for ALLERGIES Metaxalone (Skelaxin), 800 MG PO DAILY PRN for Pain Review of Systems Constitutional: No fever, No chills, No sweats Eyes: No worsening of vision ENT: No hearing loss, No nasal symptoms Respiratory: No cough, No wheezing Cardiovascular: No chest pain, No PND Abdomen: No pain, No vomiting Musculoskeletal: + joint pain, + muscle pain Genitourinary - Female: No dysuria, No urinary frequency, No urinary urgency Neurologic: + balance problems, No memory loss, No paralysis, No weakness Psychiatric: No depression symptoms Endocrine: No fatigue Hematologic / Lymphatic: No abnormal bleeding/bruising Integumentary: No rash Physical Exam Vital Signs Date Time Temp Pulse Resp B/P (MAP) Pulse Ox O2 Delivery O2 Flow Rate FiO2 09/14/17 19:18 93 Nasal Cannula 2.0 09/14/17 19:17 87 Room Air 09/14/17 19:06 91 11 94 09/14/17 19:04 163/92 09/14/17 18:36 87 16 09/14/17 18:21 70 16 09/14/17 18:06 80 22 09/14/17 17:51 82 31 09/14/17 17:43 70 09/14/17 17:36 72 15 97 09/14/17 17:16 36.6 76 20 169/91 95 Room Air 09/14/17 17:12 169/91 General Appearance: WD/WN, + pertinent finding (Loquacious, eledrly female in no distress) Head: normocephalic Eyes: normal inspection ENT: normal ENT inspection, pharynx normal Neck: supple, no JVD Respiratory/Chest: chest non-tender, lungs clear, normal breath sounds Cardiovascular: regular rate, rhythm, no edema, no gallop Abdomen/GI: normal bowel sounds, non tender, soft Back: normal inspection, no CVA tenderness Extremities/Musculoskelatal: + pertinent finding (L arm cannot be moved without pain and is splinted) Neurologic/Psych: logger all round II-XII nml as tested, no motor/sensory deficits, alert, oriented x 3 Skin: normal color, warm/dry Diagnostics Laboratory Results Results Past 24 Hours Test 09/14/17 17:20 Range/Units White Blood Count 6.37 4.8-10.8 K/uL Red Blood Count 4.27 4.2-5.4 M/uL Hemoglobin 13.9 12.0-16.0 g/dL Hematocrit 40.2 37-47 % Mean Corpuscular Volume 94.1 80-100 fL Mean Corpuscular Hemoglobin 32.6 25-34 pg Mean Corpuscular Hemoglobin Concent 34.6 32-36 g/dl Platelet Count 197 130-400 K/uL Mean Platelet Volume 9.9 7.4-10.4 fL Neutrophils (%) (Auto) 55.0 % Lymphocytes (%) (Auto) 32.2 % Monocytes (%) (Auto) 9.7 % Eosinophils (%) (Auto) 2.5 % Basophils (%) (Auto) 0.3 % Neutrophils # (Auto) 3.50 1.4-6.5 K/uL Lymphocytes # (Auto) 2.05 1.2-3.4 K/uL Monocytes # (Auto) 0.62 0.11-0.59 K/uL Eosinophils # (Auto) 0.16 0-0.5 K/uL Basophils # (Auto) 0.02 0-0.2 K/uL RDW Standard Deviation 47.3 36.4-46.3 fL RDW Coefficient of Variation 13.8 11.5-14.5 % Immature Granulocyte % (Auto) 0.3 % Immature Granulocyte # (Auto) 0.02 0.00-0.02 K/uL Prothrombin Time 9.9 9.0-12.0 SECONDS Prothromb Time International Ratio 0.9 0.9-1.1 Activated Partial Thromboplast Time 23.3 21.0-31.0 SECONDS Partial Thromboplastin Ratio 0.9 Sodium Level 140 136-145 mmol/L Potassium Level 3.6 3.5-5.1 mmol/L Chloride Level 109 98-107 mmol/L Carbon Dioxide Level 25 21-32 mmol/L Anion Gap 7.0 3-11 mmol/L Blood Urea Nitrogen 15 7-18 mg/dl Creatinine 1.03 0.60-1.20 mg/dl Est Creatinine Clear Calc Drug Dose 41.2 ml/min Estimated GFR () 60.7 Estimated GFR (Non- 52.4 BUN/Creatinine Ratio 14.4 10-20 Random Glucose 189 70-99 mg/dl Calcium Level 8.8 8.5-10.1 mg/dl Total Bilirubin 0.5 0.2-1 mg/dl Direct Bilirubin 0.1 0-0.2 mg/dl Aspartate Amino Transf (AST/SGOT) 25 15-37 U/L Alanine Aminotransferase (ALT/SGPT) 16 12-78 U/L Alkaline Phosphatase 63 45-117 U/L Total Protein 7.2 6.4-8.2 gm/dl Albumin 3.6 3.4-5.0 gm/dl Lipase 130 73-393 U/L Diagnostic Radiology XR shoulder: Displaced scapular fracture which involves the glenoid. No dislocation. CT chest: Comminuted fracture within the left scapula as described above. This extends in to the glenoid which demonstrates up to 2 cm of posterior displacement of the glenoid fragment. There is mild anterior subluxation of the left humeral head in relation to the glenoid. Impression Assessment and Plan 77 y/o F Hx RLS, osteoarthritis, multiple back and rotator cuff surgeries. The pt presents following a fall onto he L shoulder. She had significant pain following her fall and felt she had suffered a fracture. A displaced clavicular fracture was confirmed on arrival to the ER. She did not have any symptoms preceding her fall. She was walking her dog in fact when it became distracted by another dog at the opposite end of her yard and pulled her down onto her side as a result. She normally requires a walker for ambulation but is able to maintain independence and walk her dog regularly. 1) Clavicular fracture - as she ambulates with a walker, she may now need rehab. We have consulted orthopedics, PT/OT. Analgesia is provided. 2) RLS - cont Sinemet, Skelaxin. Pramipexole 3) HPL - cont Statin 4) Glu is high for a nondiabetic - we will obtain an A1C Full code - SCDs - would convert to Heparin AM Total time for this admit including review of labs, meds, imaging, records - discussion with pt and ER attending - 35 min Level of Care Med/Surg Resuscitation Status FULL RESUSCITATION VTE Prophylaxis Given or contraindicated: SCD's
[2017-09-14] MEDS ORDERED: ONDANSETRON INJ 2 MG/ML 2 ML VIAL IV PRN (20:15)
[2017-09-14] MEDS ORDERED: MoRPHine SULFATE 4 MG/ML 1 ML CARP\\VIAL IV PRN (20:15)
[2017-09-14] MEDS ORDERED: ALUMINUM/MAGNESIUM/SIMETH (MAALOX MAX) 30 ML UDC PO PRN (20:15)
[2017-09-14] MEDS ORDERED: MAGNESIUM HYDROXIDE SUSP 30 ML UDC PO PRN (20:15)
[2017-09-14] MEDS ORDERED: POLYETHYLENE (MIRALAX) 17 GM PACK PO PRN (20:15)
[2017-09-14] MEDS ORDERED: ACETAMINOPHEN 325 MG TAB PO PRN (20:15)
[2017-09-14] MEDS ORDERED: METAXALONE 800 MG TAB PO PRN (20:15)
[2017-09-14] MEDS ORDERED: FEXOFENADINE HCL 60 MG TAB PO PRN (20:15)
[2017-09-14 21:00] VITALS: BP 144/83; PULSE 78; TEMP 37.1; Ht 165.1 cm; Wt 67.3 kg
[2017-09-14] MEDS ORDERED: NSS + 20MEQ KCL 1000ML 1,000 ML IV SCH (21:30)
[2017-09-14] MEDS: GABAPENTIN 100 MG CAP PO SCH (21:54)
[2017-09-14] MEDS: ROSUVASTATIN CALCIUM 10 MG TAB PO SCH (21:54)
[2017-09-14] MEDS: ROPINIROLE HCL 0.25 MG TAB PO SCH (21:55)
[2017-09-14] MEDS: CARBIDOPA/LEVODOPA 25/100MG TAB PO SCH (21:55)
[2017-09-14] MEDS: CARBIDOPA/LEVODOPA 50/200MG EXT REL TAB PO SCH (21:55)
[2017-09-14] MEDS ORDERED: IV FLUIDS COMPLETED PRN (22:30)
[2017-09-14 22:51] VITALS: BP 143/83; PULSE 83; TEMP 37; O2SAT 97
[2017-09-15 07:20] VITALS: BP 127/70; PULSE 80; TEMP 36.6; O2SAT 94
[2017-09-15] MEDS: OXYCODONE/ACETAMINOPHEN 7.5-325 TAB PO PRN ×3 (08:25→21:09)
[2017-09-15] MEDS: CARBIDOPA/LEVODOPA 25/100MG TAB PO SCH ×4 (08:29→21:13)
[2017-09-15] MEDS: ROPINIROLE HCL 0.25 MG TAB PO SCH ×3 (08:29→21:13)
[2017-09-15] MEDS: PANTOprazole SOD 40 MG TAB PO SCH (08:29)
--- NOTE | 2017-09-15 09:18 | Orthopedic Consultation ---
Orthopedic Consultation Date of Consultation: Sep 15, 2017. Attending Physician: Leonidas Melgoza MD History of Present Illness The patient is a 77-year-old female who presents for left shoulder injury status post fall from sanding height on 09/14/2017. Patient denies hitting her head or loss of consciousness. Admits to pain to the left shoulder, comfortable at rest, denies associated injury or pain in other extremities. Denies numbness tingling in left upper extremity. Past Medical/Surgical History Medical Problems: (1) Fall Status: Acute (2) Fracture of left clavicle Status: Acute (3) Left scapula fracture Status: Acute (4) Syncope Status: Acute (5) Syncope Status: Acute Family History No pertinent family history Social History Smoking Status: Never Smoker Drug Use: none Marital Status: Housing Status: lives alone Occupation Status: retired Allergies Coded Allergies: Alcohol (Verified Allergy, Unknown, MIGRAINES, 09/14/17) Eucalyptus Tree (Verified Allergy, Unknown, CONGESTION, 09/14/17) Metoclopramide (Verified Allergy, Unknown, 09/14/17) Quinine (Verified Allergy, Unknown, BLOOD COUNT GOES DOWN, 09/14/17) Morphine (Verified Adverse Reaction, Mild, "SICK", 09/14/17) Home Medications Scheduled Alendronate Sodium (Fosamax), 70 MG PO WK Carbidopa/Levodopa (Sinemet Cr 50MG/200MG), 2 TAB PO HS Carbidopa/Levodopa (Sinemet 25MG/100MG), 1 TAB PO QID Gabapentin (Neurontin), 200 MG PO HS Krill Oil (Krill Oil [place]-3), 1 CAP PO DAILY Nutritional Supplements (Colon Formula), 1 CAP PO DAILY Omeprazole (Prilosec), 40 MG PO DAILY Ropinirole (Requip), 0.5 MG PO TID Rosuvastatin Calcium (Crestor), 10 MG PO HS Thiamine Hcl (Vitamin B-1), 1 TAB PO DAILY Scheduled PRN Fexofenadine Hcl (Lita), 60-120 MG PO BID PRN for ALLERGIES Hydrocodone/Acetaminophen 5MG/325MG ([place] 5MG/325MG), 1 TABLET PO Q6H PRN for Pain Metaxalone (Skelaxin), 800 MG PO DAILY PRN for Pain Current Inpatient Medications Current Inpatient Medications Medications (Trade) Dose Ordered Sig/Christel Route Start Time Stop Time Status Last Admin Dose Admin Ioversol (Optiray 320) 115 ml UD PRN IV 09/14/17 19:15 09/18/17 19:14 Carbidopa/Levodopa (Sinemet 25/ 100MG Tab) 1 tab QID PO 09/14/17 21:00 10/14/17 20:59 09/15/17 08:29 1 TAB Carbidopa/Levodopa (Sinemet Cr 50/ 200MG Tab) 2 tab HS PO 09/14/17 21:00 10/14/17 20:59 09/14/17 21:55 2 TAB Fexofenadine HCl (Lita Tab) 60 mg BID PRN PO 09/14/17 20:15 10/14/17 20:14 Gabapentin (Neurontin Cap) 200 mg HS PO 09/14/17 21:00 10/14/17 20:59 09/14/17 21:54 200 MG Metaxalone (Skelaxin Tab) 800 mg DAILY PRN PO 09/14/17 20:15 10/14/17 20:14 Ropinirole HCl (Requip Tab) 0.5 mg TID PO 09/14/17 21:00 10/14/17 20:59 09/15/17 08:29 0.5 MG Rosuvastatin Calcium (Crestor Tab) 10 mg HS PO 09/14/17 21:00 10/14/17 20:59 09/14/17 21:54 10 MG Pantoprazole Sodium (Protonix Tab) 40 mg QAM PO 09/15/17 09:00 10/15/17 08:59 09/15/17 08:29 40 MG Al Hydrox/Mg Hydrox/Simethicone (Maalox Max Susp) 15 ml Q4H PRN PO 09/14/17 20:15 10/14/17 20:14 Magnesium Hydroxide (Milk Of Magnesia Susp) 30 ml Q6H PRN PO 09/14/17 20:15 10/14/17 20:14 Polyethylene (Miralax Powder Packet) 17 gm DAILY PRN PO 09/14/17 20:15 10/14/17 20:14 Ondansetron HCl (Zofran Inj) 4 mg Q6H PRN IV 09/14/17 20:15 10/14/17 20:14 Morphine Sulfate (MoRPHine SULFATE INJ) 3 mg Q3H PRN IV 09/14/17 20:15 09/28/17 20:14 Oxycodone/ Acetaminophen (Percocet 7.5-325MG Tab) 1 tab Q4H PRN PO 09/14/17 20:15 09/28/17 20:14 09/15/17 08:25 1 TAB Potassium Chloride/Sodium Chloride 1,000 ml @ 80 mls/hr [id number] IV 09/14/17 21:30 09/15/17 09:59 09/14/17 21:56 80 MLS/HR Miscellaneous (Iv Fluids Completed) 1 ea PRN PRN N/A 09/14/17 22:30 09/14/18 22:29 Review of Systems The review of systems is negative with the exception of those mentioned in the history of present illness. Physical Exam Date Time Temp Pulse Resp B/P (MAP) Pulse Ox O2 Delivery O2 Flow Rate FiO2 09/15/17 07:20 36.6 80 16 127/70 (89) 94 Room Air 09/15/17 00:10 Room Air 09/14/17 22:51 37.0 83 18 143/83 (103) 97 Nasal Cannula 2.0 09/14/17 21:30 Nasal Cannula 2.0 09/14/17 21:00 37.1 78 16 144/83 Nasal Cannula 2.0 09/14/17 20:46 36.6 91 11 163/92 93 09/14/17 19:18 93 Nasal Cannula 2.0 09/14/17 19:17 87 Room Air 09/14/17 19:06 91 11 94 09/14/17 19:04 163/92 09/14/17 18:36 87 16 09/14/17 18:21 70 16 09/14/17 18:06 80 22 09/14/17 17:51 82 31 09/14/17 17:43 70 09/14/17 17:36 72 15 97 09/14/17 17:16 36.6 76 20 169/91 95 Room Air 09/14/17 17:12 169/91 Alert and oriented 3, no apparent distress. LLE NVSI _EHL/FHL/TA/GS SILT grossly, CR< 2 seconds, +2 DP pulse, compartments soft, full painless ROM ankle, knee, hip. LUE NVSI +M/R/U/AIN/PIN SILT grossly, CR< 2 seconds, +2 radial pulse, compartments soft, Painless ROM wrist and elbow. Shoulder ROM deferred secondary to pain and fracture, skin intact, shoulder compartments soft NT, sling in place Laboratory Results Last 24 Hours Test 09/14/17 17:20 09/15/17 05:14 White Blood Count 6.37 K/uL Red Blood Count 4.27 M/uL Hemoglobin 13.9 g/dL Hematocrit 40.2 % Mean Corpuscular Volume 94.1 fL Mean Corpuscular Hemoglobin 32.6 pg Mean Corpuscular Hemoglobin Concent 34.6 g/dl Platelet Count 197 K/uL Mean Platelet Volume 9.9 fL Neutrophils (%) (Auto) 55.0 % Lymphocytes (%) (Auto) 32.2 % Monocytes (%) (Auto) 9.7 % Eosinophils (%) (Auto) 2.5 % Basophils (%) (Auto) 0.3 % Neutrophils # (Auto) 3.50 K/uL Lymphocytes # (Auto) 2.05 K/uL Monocytes # (Auto) 0.62 K/uL Eosinophils # (Auto) 0.16 K/uL Basophils # (Auto) 0.02 K/uL RDW Standard Deviation 47.3 fL RDW Coefficient of Variation 13.8 % Immature Granulocyte % (Auto) 0.3 % Immature Granulocyte # (Auto) 0.02 K/uL Prothrombin Time 9.9 SECONDS Prothromb Time International Ratio 0.9 Activated Partial Thromboplast Time 23.3 SECONDS Partial Thromboplastin Ratio 0.9 Sodium Level 140 mmol/L Potassium Level 3.6 mmol/L Chloride Level 109 mmol/L Carbon Dioxide Level 25 mmol/L Anion Gap 7.0 mmol/L Blood Urea Nitrogen 15 mg/dl Creatinine 1.03 mg/dl Est Creatinine Clear Calc Drug Dose 41.2 ml/min Estimated GFR () 60.7 Estimated GFR (Non- 52.4 BUN/Creatinine Ratio 14.4 Random Glucose 189 mg/dl Calcium Level 8.8 mg/dl Total Bilirubin 0.5 mg/dl Direct Bilirubin 0.1 mg/dl Aspartate Amino Transf (AST/SGOT) 25 U/L Alanine Aminotransferase (ALT/SGPT) 16 U/L Alkaline Phosphatase 63 U/L Total Protein 7.2 gm/dl Albumin 3.6 gm/dl Lipase 130 U/L Assessment & Plan Left nondisplaced clavicle fracture Left comminuted and displaced scapular fracture with intra-articular extension -I discussed at length with the patient her injury and the severity. I emphasized the importance of strict nonweightbearing to her left upper extremity and sling immobilization. She may come out of the sling for gentle ROM exercises of her wrist and elbow. I will obtain 3-D reconstruction films with the CT scan to better evaluate the fracture pattern. No acute surgical intervention at this time. She will follow up in the office with Dr. Ford upon discharge, who she is known to. Thank you for the consultation
[2017-09-15] MEDS ORDERED: HYDR-5688 PO (11:13)
--- NOTE | 2017-09-15 11:20 | Discharge Instructions ---
Discharge Instructions Date of Service Sep 15, 2017. Admission Reason for Admission: Clavicular Fracture Discharge Discharge Diagnosis / Problem: Left Clavical and Left Scapular Fracture Discharge Goals Goal(s): Decrease discomfort, Improve function, Increase independence, Improve disease control, Improve nutritional status Activity Recommendations Activity Limitations: per Instructions/Follow-up section . Instructions / Follow-Up Instructions / Follow-Up You are being discharged on 20 tablets of Pain medication. Take this medication as prescribed only if you are having pain. Sometimes pain medication can cause constipation. It is important to drink a lot of fluids and eat a diet high in fibre while you take this medication. Please do not bear weight on with your left arm. Keep your left arm immobilized in a sling. A follow up appointment with Dr. Lo will be scheduled early in the new year. If you do not hear from Dr. Lo's office by SaturdaySeptember 18 please call the office. Information on your pain medication and clavicular fractures will be printed for you. Please read this information carefully. You may resume all of your home medications on discharge. If you have any concerns in the next few days please call your primary care provider. (For example if your pain is not well controlled). Current Hospital Diet Patient's current hospital diet: Regular Diet Discharge Diet Recommended Diet: AHA Diet (Heart Healthy) Pending Studies Studies pending at discharge: no Laboratory Results Hemoglobin A1c Test 09/15/17 05:14 Range/Units Medical Emergencies . Who to Call and When: Medical Emergencies: If at any time you feel your situation is an emergency, please call 911 immediately. . Non-Emergent Contact Non-Emergency issues call your: Primary Care Provider, Surgeon Call Non-Emergent contact if: you have a fever, temperature is above 101, your pain is not controlled, your pain is worsening . . "Provider Documentation" section prepared by Gurpreet Cowan. . VTE Core Measure Inpt VTE Proph given/why not?: SCD's Resident Involvement: Resident Care Provided Care Provided: Adult Hospital Medicine
--- NOTE | 2017-09-15 11:25 | Discharge Summary ---
Discharge Summary Date of Service Sep 15, 2017. Discharge Summary Admission Date: Sep 14, 2017 at 20:11 Discharge Disposition: Home Principal Diagnosis: Left Clavicle and Left Scapular Fracture Immunizations: Have You Had Influenza Vaccine: Yes Influenza Vaccine Date: Jun 13, 2011 History of Tetanus Vaccine?: Yes History of Pneumococcal: Yes History of Hepatitis B Vaccine: No Procedures: ABDOMEN AND PELVIS CT WITH IV CONTRAST CT DOSE: 1839.16 mGy.cm HISTORY: Fall. Left-sided abdominal pain. eval for trAUMA TECHNIQUE: Multiaxial CT images of the abdomen and pelvis were performed following the use of intravenous contrast. A dose lowering technique was utilized adhering to the principles of ALARA. COMPARISON STUDY: Abdomen and pelvis CT 06/20/2014. FINDINGS: No pneumoperitoneum. No pneumatosis. No acute fractures within the visualized osseous structures of the abdomen and pelvis. Posterior decompression fusion seen within the lower thoracic and lumbar spine. Small fat-containing midline ventral hernia and a small fat-containing umbilical hernia. Mild elevation of the left hemidiaphragm, unchanged. Moderate hiatus hernia. The bladder, uterus, bilateral adnexa are unremarkable. Colonic diverticulosis. Question wall thickening of the sigmoid colon is likely due to muscular hypertrophy. No bowel wall thickening or obstruction. Postoperative changes consistent with prior right hemicolectomy. No retroperitoneal hematoma. No retroperitoneal lymphadenopathy. A left circumaortic renal vein. The liver, spleen, and adrenal glands are unremarkable. No hydronephrosis. Stable common hepatic bile duct dilatation. This is likely due to the patient's postcholecystectomy state. Stable 9 mm cystic lesion at the pancreatic tail. A few subcentimeter hypodense renal lesions are too small to characterize. No hydronephrosis. IMPRESSION: 1. No acute process within the abdomen or pelvis. 2. Additional chronic findings as described above. These are not significant changed. CERVICAL SPINE CT CT DOSE: HISTORY: Fall. Neck pain. eval for trauma TECHNIQUE: Multiaxial CT images of the cervical spine were performed and reformatted in the sagittal and coronal plane without the use of contrast. A dose lowering technique was utilized adhering to the principles of ALARA. COMPARISON: None. FINDINGS: No fractures within the cervical spine. 2 mm of anterolisthesis of C4 and C5 and C5 on C6. This is likely due to long-standing degenerative change. Mild disc space narrowing at C5-C6 and severe disc space narrowing at C6-C7. The prevertebral soft tissues and the C1-C2 interval are intact. No pneumothorax. IMPRESSION: No fractures within the cervical spine. CHEST CT WITH CONTRAST CT DOSE: HISTORY: Fall. Left shoulder fracture. eval for trauma TECHNIQUE: Multiaxial CT images of the chest were performed following the intravenous administration of contrast. A dose lowering technique was utilized adhering to the principles of ALARA. COMPARISON: Chest CT 12/27/2009. FINDINGS: There is oblique fracture within the medial left clavicle which demonstrates mild anterior displacement. Redemonstration of the comminuted fracture through the body of the scapula which extends into the glenoid. This demonstrates up to 2 cm of posterior displacement at the glenoid. There is a left shoulder effusion. Mild anterior subluxation of the left humeral head. No pneumothorax. Groundglass densities within the base of the left lower lobe. The right lung is essentially clear. The central airways are patent. Moderate hiatus hernia. No mediastinal or hilar lymphadenopathy. Normal caliber thoracic aorta with no evidence for dissection. The central pulmonary arteries are patent. No mediastinal hematoma. No pneumothorax. No pleural effusions. IMPRESSION: 1. Comminuted fracture within the left scapula as described above. This extends into the glenoid which demonstrates up to 2 cm of posterior displacement of the glenoid fragment. There is mild anterior subluxation of the left humeral head in relation to the glenoid. 2. Mildly displaced left medial clavicle fracture. 3. Groundglass densities within the left lower lobe which favor mild dependent change. CHEST ONE VIEW PORTABLE HISTORY: Left-sided CHEST PAIN COMPARISON: Chest 07/03/2017. FINDINGS: No pneumothorax. No pleural effusions. The heart remains mildly enlarged. Posterior fusion hardware within the lumbar spine. Metallic anchors within the right humeral head. Left scapular fracture is better appreciated on the same day left shoulder series. IMPRESSION: 1. Mild cardiomegaly. 2. Left scapular fracture is again noted. LEFT SHOULDER 3 VIEWS HISTORY: Fall. Left shoulder pain. eval for fx COMPARISON: Chest 07/03/2017. FINDINGS: The left clavicle is intact. Displaced fracture at the body of the scapula which demonstrates up to 1.7 cm of posterior displacement. No dislocation within the left shoulder. The fracture extends through the glenoid. The humeral head appears intact. Moderate osteoarthritis within the glenohumeral joint. No radiopaque foreign bodies. IMPRESSION: Displaced scapular fracture which involves the glenoid. No dislocation. Medication Reconciliation New Medications: Hydrocodone/Acetaminophen 5MG/325MG ([place] 5MG/325MG) Tab 1 TABLET PO Q6H PRN for Pain for 10 Days, #20 TAB PRN PAIN Continued Medications: Alendronate Sodium (Fosamax) 70 Mg Tab 70 MG PO WK, TAB Carbidopa/Levodopa (Sinemet Cr 50MG/200MG) Tabcr 2 TAB PO HS Carbidopa/Levodopa (Sinemet 25MG/100MG) Tab 1 TAB PO QID Fexofenadine Hcl (Lita) 60 Mg Tab 60-120 MG PO BID PRN for ALLERGIES Gabapentin (Neurontin) 100 Mg Cap 200 MG PO HS Krill Oil (Krill Oil [place]-3) 1 Cap Cap 1 CAP PO DAILY VIVIANE RED FISH OIL Metaxalone (Skelaxin) 800 Mg Tab 800 MG PO DAILY PRN for Pain NEEDED Nutritional Supplements (Colon Formula) 1 Cap Cap 1 CAP PO DAILY Omeprazole (Prilosec) 40 Mg Cap 40 MG PO DAILY, CAP Ropinirole (Requip) 0.25 Mg Tab 0.5 MG PO TID TWO 0.25 MG TABLETS 3 TIMES DAILY Rosuvastatin Calcium (Crestor) 10 Mg Tab 10 MG PO HS, TAB Thiamine Hcl (Vitamin B-1) Unknown Strength Tab 1 TAB PO DAILY Discharge Exam The patient was seen and examined at bedside. Pt reports pain is well controlled with Percocet 7.5 tabs (pt gone one tab at 8AM) Patient is resting comfortably in bed. L Arm immobilized in sling. Eating and drinking well. Reporting that her urine appears concentrated. Plan of care was described to the patient and all questions were answered. Review of Systems: Constitutional: No fever, No chills Respiratory: No cough, No sputum, No wheezing, No shortness of breath, No dyspnea on exertion Cardiovascular: No chest pain Abdomen: No pain, No nausea, No vomiting, No diarrhea, No constipation Genitourinary - Female: No dysuria Genitourinary - Male: No hematuria, No dysuria, No urinary hesitancy, No urinary retention Neurologic: No memory loss Endocrine: No fatigue Integumentary: No rash Physical Exam: General Appearance: WD/WN Eyes: normal inspection, PERRL ENT: + pertinent finding (dry tongue) Neck: supple Respiratory/Chest: chest non-tender, lungs clear, normal breath sounds, no respiratory distress, no accessory muscle use Cardiovascular: regular rate, rhythm, no edema, no gallop, no JVD, no murmur , normal peripheral pulses Abdomen / GI: normal bowel sounds, non tender, soft, no organomegaly, no pulsatile mass, normal rectal exam Extremities: + pertinent finding (Left arm immobilized in sling, L shoulder is lower than right, there is pain at the site of clavicular fracture near the sternum when she moves, he also reports left scapular pain, no visible brusing over the surface of the skin. 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 The pt presents following a fall onto her L shoulder. She had significant pain following her fall and felt she had suffered a fracture. A displaced clavicular fracture was confirmed on CT and X-ray on arrival to the ER. She did not have any symptoms preceding her fall. She was walking her dog in fact when her dog became distracted by another dog at the opposite end of her yard and pulled her down onto her side as a result. This history was confirmed by the admitting doctor and the Resident Hospitalist Physician. The fall is mechanical, patient denies LOC and trauma to the head. Pt normally requires a walker for ambulation but is able to maintain independence and walk her dog regularly. Clavicular fracture - Seen by our Heel Emery Buffer, conservative management is recommended. Patient has seen Dr. Lo in the past and will wait until after the new year for a consultation. She was given 20 tabs of [place] for pain (instructions above). She was advised to call Dr. Lo's office to either be seen earlier or to call her PCP for an evaluation. Our Occupational Therapist will give recommendations on completing ADLs with this injury. Patient is to be non weight bearing on her LUE and to keep her LUE immobilized in a sling. Patient was advised not to take Ultram and [place] concurrently and not to drive or operate heavy machinery while she is taking [place]. Patient was also advised to drink a lot of water and to eat a high fibre diet while she is taking her pain medication. Pt verbalized understanding. All other home meds were resumed on discharge. Total Time Spent: Greater than 30 minutes (32 min) This includes examination of the patient, discharge planning, medication reconciliation, and communication with other providers. Discharge Instructions Please refer to the electronic Patient Visit Report (Discharge Instructions) for additional information. Additional Copies To Tu Cannon M.D.; Silvestre Lo M.D.; [facility] Resident Involvement: Resident Care Provided Care Provided: Adult Hospital Medicine
--- NOTE | 2017-09-15 14:44 | Family Medicine Progress Note ---
Progress Note Date of Service Sep 15, 2017. Subjective Pt evaluation today including: conversation w/ patient, physical exam, chart review, lab review The patient was seen and examined at bedside. Pt reports pain is well controlled with Percocet 7.5 tabs (pt gone one tab at 8AM) Patient is resting comfortably in bed. L Arm immobilized in sling. Eating and drinking well. Reporting that her urine appears concentrated. Plan of care was described to the patient and all questions were answered. Review of Systems: Constitutional: No fever, No chills Respiratory: No cough, No sputum, No wheezing, No shortness of breath, No dyspnea on exertion Cardiovascular: No chest pain Abdomen: No pain, No nausea, No vomiting, No diarrhea, No constipation Genitourinary - Female: No dysuria Genitourinary - Male: No hematuria, No dysuria, No urinary hesitancy, No urinary retention Neurologic: No memory loss Endocrine: No fatigue Integumentary: No rash Objective Physical Exam Notes: General Appearance: WD/WN Eyes: normal inspection, PERRL ENT: + pertinent finding (dry tongue) Neck: supple Respiratory/Chest: chest non-tender, lungs clear, normal breath sounds, no respiratory distress, no accessory muscle use Cardiovascular: regular rate, rhythm, no edema, no gallop, no JVD, no murmur , normal peripheral pulses Abdomen / GI: normal bowel sounds, non tender, soft, no organomegaly, no pulsatile mass, normal rectal exam Extremities: + pertinent finding (Left arm immobilized in sling, L shoulder is lower than right, there is pain at the site of clavicular fracture near the sternum when she moves, he also reports left scapular pain, no visible brusing over the surface of the skin. 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 The pt presents following a fall onto her L shoulder. She had significant pain following her fall and felt she had suffered a fracture. A displaced clavicular fracture was confirmed on CT and X-ray on arrival to the ER. She did not have any symptoms preceding her fall. She was walking her dog in fact when her dog became distracted by another dog at the opposite end of her yard and pulled her down onto her side as a result. This history was confirmed by the admitting doctor and the Resident Hospitalist Physician. The fall is mechanical, patient denies LOC and trauma to the head. Pt normally requires a walker for ambulation but is able to maintain independence and walk her dog regularly. L Clavicular and Left Scapular fracture Stable in in a walker. PT and OT on Board. Patient knows Dr. Lo, Ortho has signed up, pt will follow up with Dr. Lo in the new year. This follow up needs to be arranged. Pain control with Percocet 7.5mg Q4H PRN. Chronic Neuropathic Pain Gabapentin 200mg QHS Restless Leg Syndrome cont Sinemet, Skelaxin. Pramipexole HLD cont Statin Hyperglycemia Follow up HBA1C tomorrow. Dispo: Med Surg, PT and OT, awaiting insurance approval for [facility]. Full code - SCDs, starting Hep SQ BID tomorrow in the AM. Resident Physician Supervision Note: I was present with PGY2 Dr. Gurpreet Cowan during the history and exam. I discussed the case with the resident and agree with the findings and plan as documented in the note. Any exceptions or clarifications are listed here: none. Pt's pain is largely controlled in the left shoulder/clavicle region. Denies any recent cough, dyspnea, or infectious sx's. Anxious to get home. Lives alone. VSS, no fever gen - left arm immobilized in sling mouth - MM dry heart - RRR lungs - CTA b/l abd - soft ext - no edema; left arm/shoulder appears distracted from the shoulder joint; sling in place A/P: Traumatic fracture to left scapula & left clavicle. nonoperative management with sling, pain meds, time. OT eval completed - NOT clear to return home due to inability to perform ADLs. Will need short-term rehab at [facility]. Left basilar opacity on CT - likely atelectasis - no symptoms/signs of pneumonia. Severe restless legs - check iron studies in AM. Documented By: Leonidas Melgoza MD Resident Involvement: Resident Care Provided Care Provided: Adult Hospital Medicine
[2017-09-15 15:08] VITALS: BP 130/75; PULSE 84; TEMP 36.7; O2SAT 98
[2017-09-15] MEDS: CARBIDOPA/LEVODOPA 50/200MG EXT REL TAB PO SCH (21:13)
[2017-09-15] MEDS: ROSUVASTATIN CALCIUM 10 MG TAB PO SCH (21:13)
[2017-09-15] MEDS: GABAPENTIN 100 MG CAP PO SCH (21:13)
[2017-09-15 23:40] VITALS: BP 132/76; PULSE 84; TEMP 37; O2SAT 96
[2017-09-16] MEDS: OXYCODONE/ACETAMINOPHEN 7.5-325 TAB PO PRN ×3 (05:48→20:08)
[2017-09-16 06:51] LABS: BUN/CREATININE RATIO 16.7 (10-20); CALCIUM 8.6 mg/dl (8.5-10.1); CREATININE 0.61 mg/dl (0.60-1.20); FERRITIN 59.6 ng/ml (8.0-388.0); POTASSIUM 3.8 mmol/L (3.5-5.1)
[2017-09-16 07:50] VITALS: BP 137/84; PULSE 84; TEMP 36.6; O2SAT 96
[2017-09-16 07:50] LABS: ESTIMATED AVERAGE GLUCOSE 128 mg/dl; HA1C FLAG Normal (Normal)
[2017-09-16] MEDS: ROPINIROLE HCL 0.25 MG TAB PO SCH ×3 (08:11→20:29)
[2017-09-16] MEDS: CARBIDOPA/LEVODOPA 25/100MG TAB PO SCH ×4 (08:11→20:32)
[2017-09-16] MEDS: PANTOprazole SOD 40 MG TAB PO SCH (08:11)
[2017-09-16] MEDS: HEPARIN SOD 5000 UNIT/0.5 ML CARP SQ SCH ×2 (08:14→20:33)
--- NOTE | 2017-09-16 13:36 | Family Medicine Progress Note ---
Progress Note Date of Service Sep 16, 2017. Subjective Pt evaluation today including: conversation w/ patient Pain: pain at L shoulder during movement PO Intake: adequate Voiding: no voiding problems Patient continues to report pain, of the L Shoulder, near fx site. Pain is triggered by movement. She does report relief from current pain medicine, Constitutional: No fever, No chills, No weakness Respiratory: No cough, No wheezing, No shortness of breath Cardiovascular: No chest pain, No edema, No palpitations Abdomen: No pain, No nausea, No vomiting, No diarrhea, No constipation Musculoskeletal: + problem reported (pain at L Scapular/ L Clavicualr fx sites) Female : No dysuria, No urinary frequency, No hematuria Skin: No rash, No itch Additional Comments: Medications Current Inpatient Medications Medications (Trade) Dose Ordered Sig/Christel Route Start Time Stop Time Status Last Admin Dose Admin Ioversol (Optiray 320) 115 ml UD PRN IV 09/14/17 19:15 09/18/17 19:14 Carbidopa/Levodopa (Sinemet 25/ 100MG Tab) 1 tab QID PO 09/14/17 21:00 10/14/17 20:59 09/16/17 08:11 1 TAB Carbidopa/Levodopa (Sinemet Cr 50/ 200MG Tab) 2 tab HS PO 09/14/17 21:00 10/14/17 20:59 09/15/17 21:13 2 TAB Fexofenadine HCl (Francoise Tab) 60 mg BID PRN PO 09/14/17 20:15 10/14/17 20:14 Gabapentin (Neurontin Cap) 200 mg HS PO 09/14/17 21:00 10/14/17 20:59 09/15/17 21:13 200 MG Metaxalone (Skelaxin Tab) 800 mg DAILY PRN PO 09/14/17 20:15 10/14/17 20:14 Ropinirole HCl (Requip Tab) 0.5 mg TID PO 09/14/17 21:00 10/14/17 20:59 09/16/17 08:11 0.5 MG Rosuvastatin Calcium (Crestor Tab) 10 mg HS PO 09/14/17 21:00 10/14/17 20:59 09/15/17 21:13 10 MG Pantoprazole Sodium (Protonix Tab) 40 mg QAM PO 09/15/17 09:00 10/15/17 08:59 09/16/17 08:11 40 MG Al Hydrox/Mg Hydrox/Simethicone (Maalox Max Susp) 15 ml Q4H PRN PO 09/14/17 20:15 10/14/17 20:14 Magnesium Hydroxide (Milk Of Magnesia Susp) 30 ml Q6H PRN PO 09/14/17 20:15 10/14/17 20:14 Polyethylene (Miralax Powder Packet) 17 gm DAILY PRN PO 09/14/17 20:15 10/14/17 20:14 Ondansetron HCl (Zofran Inj) 4 mg Q6H PRN IV 09/14/17 20:15 10/14/17 20:14 Morphine Sulfate (MoRPHine SULFATE INJ) 3 mg Q3H PRN IV 09/14/17 20:15 09/28/17 20:14 Oxycodone/ Acetaminophen (Percocet 7.5-325MG Tab) 1 tab Q4H PRN PO 09/14/17 20:15 09/28/17 20:14 09/16/17 11:11 1 TAB Miscellaneous (Iv Fluids Completed) 1 ea PRN PRN N/A 09/14/17 22:30 09/14/18 22:29 Heparin Sodium (Porcine) (Heparin Sq 5000 Unit/0.5ml) 5,000 unit Q12 SQ 09/16/17 09:00 10/16/17 08:59 09/16/17 08:14 5,000 UNIT Objective Vital Signs Date Time Temp Pulse Resp B/P (MAP) Pulse Ox O2 Delivery O2 Flow Rate FiO2 09/16/17 07:50 36.6 84 16 137/84 (101) 96 Room Air 09/16/17 07:41 Room Air 09/15/17 23:40 37.0 84 16 132/76 (94) 96 Room Air 09/15/17 23:05 Room Air 09/15/17 16:00 Room Air 09/15/17 15:08 36.7 84 16 130/75 (93) 98 Room Air Physical Exam Notes: GENERAL: alert, well appearing, no distress, non-toxic EYE EXAM: normal conjunctiva, PERRL and EOM's grossly intact OROPHARYNX:tongue normal and mucous membranes are moist NECK: supple, no adenopathy LUNGS: Clear to auscultation. Normal chest wall mechanics HEART: no murmurs, S1 normal and S2 normal ABDOMEN: abdomen soft, non-tender, normo-active bowel sounds, no masses, no rebound or guarding. SKIN: warm/dry UPPER EXTREMITIES: L UE sling in place LOWER EXTREMITIES: No pitting edema. NEURO EXAM: Normal sensorium, cranial nerves II-XII grossly intact, normal speech, no gross weakness of arms, no gross weakness of legs. Laboratory Results Results Past 24 Hours Test 09/16/17 05:57 Range/Units Sodium Level 139 136-145 mmol/L Potassium Level 3.8 3.5-5.1 mmol/L Chloride Level 110 98-107 mmol/L Carbon Dioxide Level 23 21-32 mmol/L Anion Gap 6.0 3-11 mmol/L Blood Urea Nitrogen 10 7-18 mg/dl Creatinine 0.61 0.60-1.20 mg/dl Est Creatinine Clear Calc Drug Dose 69.5 ml/min Estimated GFR () 101.3 Estimated GFR (Non- 87.4 BUN/Creatinine Ratio 16.7 10-20 Random Glucose 129 70-99 mg/dl Calcium Level 8.6 8.5-10.1 mg/dl Iron Level 49 35-150 mcg/dl Total Iron Binding Capacity 360 250-450 mcg/dl Transferrin 221 200-360 mg/dl Transferrin % Saturation 16 15-50 % Ferritin 59.6 8.0-388.0 ng/ml Assessment and Plan 77 yo F presents with L clavicular/L scapular fracture secondary to h/o mechanical Fall while walking dog L Clavicular and Left Scapular fracture non-operative management per Orthopedics Will need Ortho f/u on discharge ( [facility]) Pain control: Percocet 7.5mg Q4H PRN. PT/OT Chronic Neuropathic Pain Gabapentin 200mg QHS Restless Leg Syndrome controlled cont Sinemet, Skelaxin. Pramipexole HLD cont Statin Hyperglycemia HBA1C :6.1 Gl 120's - 160's Dispo: Med Surg, PT and OT, awaiting insurance approval for [facility]. DVT Proph: SCDs, Hep SQ Full code - Resident Physician Supervision Note: I was present with PGY2 Dr. King Haney during the history and exam. I discussed the case with the resident and agree with the findings and plan as documented in the note. Any exceptions or clarifications are listed here: none. Pt's pain is largely controlled in the left shoulder/clavicle region. She had transient nausea earlier today and feels "full" in her abdomen. Also has nasal congestion in the absence of cough or fever. VSS, no fever gen - left arm immobilized in sling mouth - MMM heart - RRR lungs - CTA b/l except minimal decreased BS left base and minimal rales left base abd - soft, NT, BS+ ext - no edema of ankles A/P: Traumatic fracture to left scapula & left clavicle. nonoperative management with sling, pain meds, etc. check vitamin D level in AM to optimize healing. OT eval completed - NOT clear to return home due to inability to perform ADLs. Will need short-term rehab at the [facility]. Hopefully can transfer there on Saturday pending insurance auth. Left basilar opacity on CT - likely atelectasis - no symptoms/signs of pneumonia. URI - nasacort daily; francoise BID. Severe restless legs - iron studies wnl. Cont complex regimen of meds for this. Constipation - miralax BID. acute kidney injury - 2nd to dehydration - resolved. Documented By: Leonidas Melgoza MD Continued [facility] stay due to: ambulation difficulties Discharge planning: [facility]dc facility Resident Tracking Resident Involvement: Resident Care Provided Care Provided: Adult Hospital Medicine
[2017-09-16 15:17] VITALS: BP 163/76; PULSE 85; TEMP 36.9; O2SAT 96
[2017-09-16 15:49] VITALS: BP 148/82
[2017-09-16 16:00] VITALS: O2SAT 96
[2017-09-16] MEDS ORDERED: POLYETHYLENE (MIRALAX) 17 GM PACK PO SCH (18:30)
[2017-09-16] MEDS: TRIAMCINOLONE ACET NASAL SPRAY 10.8ML BTL NAE SCH (20:28)
[2017-09-16] MEDS: ROSUVASTATIN CALCIUM 10 MG TAB PO SCH (20:31)
[2017-09-16] MEDS: GABAPENTIN 100 MG CAP PO SCH (20:31)
[2017-09-16] MEDS: CARBIDOPA/LEVODOPA 50/200MG EXT REL TAB PO SCH (20:31)
[2017-09-16] MEDS: POLYETHYLENE (MIRALAX) 17 GM PACK PO SCH (21:55)
[2017-09-16 23:45] VITALS: BP 134/77; PULSE 89; TEMP 37; O2SAT 93
[2017-09-17 07:10] VITALS: BP 134/82; PULSE 60; TEMP 37.2; O2SAT 93
[2017-09-17 07:23] LABS: BUN/CREATININE RATIO 12.7 (10-20); CALCIUM 8.6 mg/dl (8.5-10.1); CREATININE 0.59 mg/dl (0.60-1.20); POTASSIUM 3.6 mmol/L (3.5-5.1)
[2017-09-17] MEDS: POLYETHYLENE (MIRALAX) 17 GM PACK PO SCH (08:59)
[2017-09-17] MEDS: TRIAMCINOLONE ACET NASAL SPRAY 10.8ML BTL NAE SCH (08:59)
[2017-09-17] MEDS: CARBIDOPA/LEVODOPA 25/100MG TAB PO SCH ×2 (09:00→12:44)
[2017-09-17] MEDS: ROPINIROLE HCL 0.25 MG TAB PO SCH ×2 (09:00→13:29)
[2017-09-17] MEDS: PANTOprazole SOD 40 MG TAB PO SCH (09:00)
[2017-09-17] MEDS: HEPARIN SOD 5000 UNIT/0.5 ML CARP SQ SCH (09:02)
--- NOTE | 2017-09-17 09:11 | Family Medicine Progress Note ---
Progress Note Date of Service Sep 17, 2017. Medications Current Inpatient Medications Medications (Trade) Dose Ordered Sig/Christel Route Start Time Stop Time Status Last Admin Dose Admin Ioversol (Optiray 320) 115 ml UD PRN IV 09/14/17 19:15 09/18/17 19:14 Carbidopa/Levodopa (Sinemet 25/ 100MG Tab) 1 tab QID PO 09/14/17 21:00 10/14/17 20:59 09/17/17 09:00 1 TAB Carbidopa/Levodopa (Sinemet Cr 50/ 200MG Tab) 2 tab HS PO 09/14/17 21:00 10/14/17 20:59 09/16/17 20:31 2 TAB Fexofenadine HCl (Lita Tab) 60 mg BID PRN PO 09/14/17 20:15 10/14/17 20:14 Gabapentin (Neurontin Cap) 200 mg HS PO 09/14/17 21:00 10/14/17 20:59 09/16/17 20:31 200 MG Metaxalone (Skelaxin Tab) 800 mg DAILY PRN PO 09/14/17 20:15 10/14/17 20:14 Ropinirole HCl (Requip Tab) 0.5 mg TID PO 09/14/17 21:00 10/14/17 20:59 09/17/17 09:00 0.5 MG Rosuvastatin Calcium (Crestor Tab) 10 mg HS PO 09/14/17 21:00 10/14/17 20:59 09/16/17 20:31 10 MG Pantoprazole Sodium (Protonix Tab) 40 mg QAM PO 09/15/17 09:00 10/15/17 08:59 09/17/17 09:00 40 MG Al Hydrox/Mg Hydrox/Simethicone (Maalox Max Susp) 15 ml Q4H PRN PO 09/14/17 20:15 10/14/17 20:14 Magnesium Hydroxide (Milk Of Magnesia Susp) 30 ml Q6H PRN PO 09/14/17 20:15 10/14/17 20:14 Ondansetron HCl (Zofran Inj) 4 mg Q6H PRN IV 09/14/17 20:15 10/14/17 20:14 Morphine Sulfate (MoRPHine SULFATE INJ) 3 mg Q3H PRN IV 09/14/17 20:15 1/6/18 20:14 Oxycodone/ Acetaminophen (Percocet 7.5-325MG Tab) 1 tab Q4H PRN PO 09/14/17 20:15 09/28/17 20:14 09/16/17 20:08 1 TAB Miscellaneous (Iv Fluids Completed) 1 ea PRN PRN N/A 09/14/17 22:30 09/14/18 22:29 Heparin Sodium (Porcine) (Heparin Sq 5000 Unit/0.5ml) 5,000 unit Q12 SQ 09/16/17 09:00 10/16/17 08:59 09/17/17 09:02 5,000 UNIT Triamcinolone Acetonide (Nasacort Allergy 24hr) 2 sprays DAILY RUPA 09/16/17 18:15 10/16/17 18:14 09/17/17 08:59 2 SPRAYS Polyethylene (Miralax Powder Packet) 17 gm BID PO 09/16/17 21:00 10/16/17 20:59 09/17/17 08:59 17 GM Benzonatate (Tessalon Perles Cap) 100 mg NOW ONCE PO 09/17/17 09:15 09/17/17 09:16 UNV Benzonatate (Tessalon Perles Cap) 100 mg Q8H PRN PO 09/17/17 09:15 10/17/17 09:14 UNV Objective Vital Signs Date Time Temp Pulse Resp B/P (MAP) Pulse Ox O2 Delivery O2 Flow Rate FiO2 09/17/17 07:10 37.2 60 19 134/82 (99) 93 Room Air 09/16/17 23:55 Room Air 09/16/17 23:45 37.0 89 16 134/77 (96) 93 Room Air 09/16/17 16:00 96 Room Air 09/16/17 15:49 148/82 (104) 09/16/17 15:17 36.9 85 16 163/76 (105) 96 Room Air Assessment and Plan Resident Physician Supervision Note: I interviewed and examined the patient. Discussed with Dr. Haney and agree with findings and plan as documented in the note. Any exceptions or clarifications are listed here: None Documented By: Jona Gaines ready to go. no cp no sob no f/c/s. no dyspnea. cough improved immediatley w cough medicine vitals noted nad breathing unlabored no pallor or icterus. lungs cta b/l no r/r /w sl diminished base L no adventitious findings no accessory muscles scapular and clavicular fractures - stable for SNF cough - likely URI related. no s/s/ c/w pneumonia stable for SNF Resident Tracking Resident Involvement: Resident Care Provided Care Provided: Adult Hospital Medicine
[2017-09-17] MEDS ORDERED: NURSING DECISION MEDICATION ORDER SCH ×2 (09:15→10:15)
[2017-09-17] MEDS ORDERED: BENZONATATE 100MG CAP PO ONE (09:15)
[2017-09-17] MEDS ORDERED: BENZONATATE 100MG CAP PO PRN (09:15)
[2017-09-17] MEDS ORDERED: COUGH DROP (SUGAR FREE) LOZ 24 LOZ/1 BOX PO PRN (09:30)
[2017-09-17] MEDS ORDERED: ERGOCALCIFEROL 50,000 INTER.UNIT CAP PO SCH (12:15)
[2017-09-17 13:13] VITALS: BP 134/82; PULSE 60; TEMP 37.2; O2SAT 93
[2017-09-17] MEDS: OXYCODONE/ACETAMINOPHEN 7.5-325 TAB PO PRN (13:29)
[2017-09-17] MEDS ORDERED: ERGO500011 PO (14:27)
--- NOTE | 2017-09-18 06:45 | Discharge Summary ---
Discharge Summary Date of Service Sep 18, 2017. Discharge Summary Admission Date: Sep 15, 2017 at 14:34 Discharge Date: Sep 17, 2017 Discharge Disposition: Home Immunizations: Have You Had Influenza Vaccine: Yes Influenza Vaccine Date: Jun 13, 2011 History of Tetanus Vaccine?: Yes History of Pneumococcal: Yes History of Hepatitis B Vaccine: No Hospital Course This includes examination of the patient, discharge planning, medication reconciliation, and communication with other providers. Discharge Instructions Please refer to the electronic Patient Visit Report (Discharge Instructions) for additional information.
== END 2017-09-17 14:50 | DRG 563 ==
LOC: EDBD 17:06 → C.EDC 17:07 → C.MSN 20:11 → ENRESERV 20:31 → OBSVTOIN 09-15 14:34
PROVIDERS: ADMIT Internal Medicine; ATTEND Internal Medicine
DX: S42.002A Fracture of unspecified part of left clavicle, initial encounter for closed fracture (principal); N17.9 Acute kidney failure, unspecified; J98.11 Atelectasis; S42.142A Displaced fracture of glenoid cavity of scapula, left shoulder, initial encounter for closed fracture; W18.39XA Other fall on same level, initial encounter; Y93.K1 Activity, walking an animal; Y99.8 Other external cause status; J06.9 Acute upper respiratory infection, unspecified; K59.00 Constipation, unspecified; G62.9 Polyneuropathy, unspecified; G25.81 Restless legs syndrome; E78.5 Hyperlipidemia, unspecified; R73.9 Hyperglycemia, unspecified; M19.90 Unspecified osteoarthritis, unspecified site; Z98.890 Other specified postprocedural states; Z79.83 Long term (current) use of bisphosphonates; Z79.899 Other long term (current) drug therapy

== ENCOUNTER → 2017-11-14 | Outpatient (CLI) | payer OTHER ==
[~2017-11-14] MED LIST changes: -ASCO250T4 PO; -B-COTAB18 PO; -CALC-51 PO; -CALC1CHW43 PO; -CHOL20007 PO; -CLON0.5T3 PO; -CYAN100020 PO; -DICL1GEL12 TOP; +ERGO500011 PO; +FEXO1TAB45 PO; -FEXO1TAB49 PO; +GABA-112 PO; -GLUC1CAP28 PO; -HYOS0.1271 PO; -MECL1TAB42 PO; -MOME6000 NAE; +NUTRCAP11 PO; +THIA50TA3 PO
--- NOTE | 2017-11-15 14:44 | MAMMOGRAPHY REPORT ---
BILATERAL DIGITAL SCREENING MAMMOGRAM TOMOSYNTHESIS WITH CAD: 11/14/2017 CLINICAL HISTORY: Routine screening. Patient has no complaints. TECHNIQUE: Breast tomosynthesis in addition to standard 2D mammography was performed. Current study was also evaluated with a Computer Aided Detection (CAD) system. COMPARISON: Comparison is made to exams dated: 11/13/2016 mammogram, 11/10/2015 mammogram, 11/09/2014 m ammogram, 09/30/2013 mammogram, 09/29/2012 mammogram, and 09/26/2011 mammogram - [facility] er. BREAST COMPOSITION: There are scattered areas of fibroglandular density in both breasts. FINDINGS: The glandular tissue is concentrated in the anterior/subareolar aspect of each breast, sta ble comparing to prior mammograms. There are scattered benign rim calcifications in both breasts. N o developing mass, architectural distortion or cluster of suspicious microcalcifications is seen. IMPRESSION: ACR BI-RADS CATEGORY 2: BENIGN There is no mammographic evidence of malignancy. A 1 year screening mammogram is recommended. The pa tient will receive written notification of the results. Approximately 10% of breast cancers are not detected with mammography. A negative mammographic report should not delay biopsy if a clinically suggestive mass is present. Elizabeth Lewis M.D. ay/:11/14/2017 20:02:03 Reflector Driller And Deburrer: Evangelina FARLEY(Zamzam)(Isidro), [facility] letter sent: Normal 1/2 BI-RADS Code: ACR BI-RADS Category 2: Benign
== END | disposition home or self-care (01) ==
LOC: C.MAMM 10:57
PROVIDERS: ATTEND Internal Medicine
DX: Z12.31 Encounter for screening mammogram for malignant neoplasm of breast (principal)